=== PATIENT | male | born 1975 | race Caucasian/White ===

== ENCOUNTER 2017-05-03 18:58 | Inpatient (IN) | payer OTHER ==
[2017-05-03 19:05] VITALS: BMI 28.1
--- NOTE | 2017-05-03 19:07 | PDOC ---
Rapid Medical Evaluation Chief Complaint: Pain Time Seen by Provider: 05/03/17 19:03 Medical Evaluation: Allergies Allergy/AdvReac Type Severity Reaction Status Date / Time No Known Allergies Allergy Verified 05/03/17 19:05 Vital Signs Temp Pulse Resp BP Pulse Ox 97.7 F 114 H 19 141/83 100 05/03/17 19:02 05/03/17 19:02 05/03/17 19:02 05/03/17 19:02 05/03/17 19:02 05/03/17 19:05 I have performed a brief in-person evaluation of this patient. The patient presents with a chief complaint of: abdominal discomfort. Patient reports daily drinker, stopped drinking 3 weeks ago, now with yellowing of the eye and distended abdomen. Pertinent physical exam findings: HEENT: yellowing of sclera nad lungs clear bilaterally abdomen firm and distended I have ordered the following: labs The patient will proceed to the ED for further evaluation.
--- NOTE | 2017-05-03 20:20 | PDOC ---
History of Present Illness - General History Source: Patient Exam Limitations: No Limitations - History of Present Illness Initial Comments: 05/03/17 21:38 Patient is a 41 year old male with a significant past medical history of who presents to the ED with complaints of right sided abdominal pain that began 6 days ago. Patient reports experiencing liver swelling and pains 2.5 weeks ago that prompted him to stop drinking. He reports Experiencing slight yellow coloration of his eyes and bilateral lower extremity edema 6 days ago secondary to his right sided abdominal pain. He reports experiencing intermittent fevers that he states comes to him at night time. Patient reports drinking a glass of vodka everyday for multiple years until stopping on April 17. Denies any shaking after drinking alcohol. Denies chest pain, SOB. Denies vomiting, coughing. Denies trauma to affected area. Denies chills. Denies diarrhea, constipation, dysuria, hematuria, hematochezia. Denies any other symptoms. Allergies: Not on staff. Social history: No smoking. Former drinker (2.5 weeks). No illicit drugs. Surgical history: None PMD: Not on staff. <Shan Jackson - Last Filed: 05/04/17 00:15> <Sammy Dowell - Last Filed: 05/04/17 06:12> - General Chief Complaint: Pain Stated Complaint: PAIN, ACUTE Time Seen by Provider: 05/03/17 19:03 Past History <Shan Jackson - Last Filed: 05/04/17 00:15> - Past Medical History COPD: No Liver Disease: Yes (Cirrosis) - Surgical History Abdominal Surgery: No Appendectomy: No Cardiac Surgery: No Cholecystectomy: No Gastric Stapling: No GI Surgery: No Lung Surgery: No Neurologic Surgery: No - Suicide/Smoking/Psychosocial Hx Smoking History: Never smoked Information on smoking cessation initiated: No Hx Alcohol Use: Yes (quit 3 wks ago) Drug/Substance Use Hx: No Substance Use Type: None <Sammy Dowell - Last Filed: 05/04/17 06:12> - Past Medical History Allergies/Adverse Reactions: Allergies Allergy/AdvReac Type Severity Reaction Status Date / Time No Known Allergies Allergy Verified 05/03/17 19:05 Home Medications: Ambulatory Orders NK [No Known Home Medication] 05/03/17 Review of Systems - Review of Systems Able to Perform ROS?: Yes Comments:: 05/03/17 21:38 ROS: A complete review of 10 out of 10 review of systems is taken and is negative apart from what is previously mentioned below and in the HPI. All Other Systems: Reviewed and Negative <Shan Jackson - Last Filed: 05/04/17 00:15> *Physical Exam - Vital Signs Last Vital Signs Temp Pulse Resp BP Pulse Ox 97.7 F 114 H 19 141/83 100 05/03/17 19:02 05/03/17 19:02 05/03/17 19:02 05/03/17 19:02 05/03/17 19:02 - Physical Exam Comments: 05/03/17 21:38 Vitals: Triage Vital signs reviewed General Appearance: +Jaundice no acute distress, well nourished well developed Head: Atraumatic Eyes: +scleral icterus. Pupils equal reactive round, extraocular movement intact Chest Wall: Nontender Cardiac: +Slightly Tachycardic Regular rate and rhythym, no murmurs, no rubs, no gallops Lungs: Clear to auscultation bilateral, good air movement bilaterally Abdomen: +Hepatomegaly, +Abdominal distention. +Tender to palpation. Soft, normal bowel sounds, Extremities: Full range of motion to all extremities, no cyanosis, clubbing, or edema Skin: Warm and dry, no rashes or lesions, no rash, no petechiae Neuro: AOX3; Cranial Nerves 2-12 grossly intact, Strength intact to all extremities, Sensation intact to all extremities, gait normal Psych: Normal mood, normal affect <Shan Jackson - Last Filed: 05/04/17 00:15> - Vital Signs Last Vital Signs Temp Pulse Resp BP Pulse Ox 97.7 F 114 H 19 141/83 100 05/03/17 19:02 05/03/17 19:02 05/03/17 19:02 05/03/17 19:02 05/03/17 19:02 <Sammy Dowell - Last Filed: 05/04/17 06:12> Procedures - Bedside Ultrasound Other: paracentesis marking - Additional Procedures Progress: Patient consented for diagnostic paracentesis. Consented and timeout performed prior to procedure Under your universal sterile precautions area prepped and draped. Left abdomen was previously marked with an ultrasound 3 cm superior and medial to the anterior lateral iliac crest. Anesthetized with 2% lidocaine. 30 cc of ascitic fluid removed with no complications. <Sammy Dowell - Last Filed: 05/04/17 06:12> Heart Score/ECG Review - ECG Intrepretation Comment:: 05/04/17 00:14 EKG performed at 22:37:45 demonstrates rate of 99 bpm,normal sinus rhythm , Additional findings include: inferior infarct. no T wave inversions, no ST elevations <Shan Jackson - Last Filed: 05/04/17 00:15> ED Treatment Course - LABORATORY CBC & Chemistry Diagram: 05/03/17 21:05 05/03/17 21:05 - ADDITIONAL ORDERS Additional order review: Laboratory Results 05/03/17 05/03/17 19:20 19:20 PT with INR 12.80 H INR 1.13 PTT (Actin FS) 24.2 L Sodium 137 Potassium 3.8 Chloride 104 Carbon Dioxide 25 Anion Gap 8 BUN 5 L Creatinine 0.4 L Creat Clearance w eGFR > 60 Random Glucose 80 Calcium 8.9 Total Bilirubin 0.3 AST 22 ALT 30 Alkaline Phosphatase 70 Total Protein 6.9 Albumin 3.3 L Total Amylase 40 Lipase 92 05/03/17 05/03/17 21:05 19:20 RBC 3.47 L 3.75 L MCV 104.8 H D 96.5 H MCHC 34.0 33.9 RDW 15.5 D 13.9 MPV 7.3 L D 9.2 Neutrophils % 85.1 H D 66.1 Lymphocytes % 7.2 L D 25.2 Monocytes % 6.4 7.2 Eosinophils % 0.9 1.2 Basophils % 0.4 0.3 <Shan Jackson - Last Filed: 05/04/17 00:15> - LABORATORY CBC & Chemistry Diagram: 05/03/17 21:05 05/03/17 21:05 - ADDITIONAL ORDERS Additional order review: Laboratory Results 05/03/17 19:20 PT with INR 12.80 H INR 1.13 PTT (Actin FS) 24.2 L 05/03/17 19:20 RBC 3.75 L MCV 96.5 H MCHC 33.9 RDW 13.9 MPV 9.2 Neutrophils % 66.1 Lymphocytes % 25.2 Monocytes % 7.2 Eosinophils % 1.2 Basophils % 0.3 <Sammy Dowell - Last Filed: 05/04/17 06:12> Medical Decision Making - Medical Decision Making 05/04/17 01:03 41 years old past medical history significant for alcoholism and liver cirrhosis and likely liver failure. Presents to the emergency department with 1 week history of increasing jaundice abdominal pain and abdominal distention and distal edema In the emergency department diagnostic tap of patient's ascites was performed. Patient was started on empiric antibiotics. He was given IV fluids. Cultures were sent. He'll be admitted to the medicine service for further evaluation. <Sammy Dowell - Last Filed: 05/04/17 06:12> *DC/Admit/Observation/Transfer - Attestations Scribe Attestion: 05/03/17 21:38 Documentation prepared by Shan Jackson, acting as manager medical device for Sammy Dowell MD, /DO. <Shan Jackson - Last Filed: 05/04/17 00:15> - Discharge Dispostion Admit: Yes <Sammy Dowell - Last Filed: 05/04/17 06:12> Diagnosis at time of Disposition: SBP (spontaneous bacterial peritonitis)
[2017-05-03 21:19] LABS: BASO % 0.4 % (0-2.0); EOS % 0.9 % (0-4.5); MCH 35.6 pg (25.7-33.7); MEAN CELL VOLUME 104.8 fl (80-96); MEAN PLT VOLUME 7.3 fl (7.5-11.1); NEUT % 85.1 % (42.8-82.8); PLATELET COUNT 319 K/MM3 (134-434); RDW 15.5 % (11.9-15.9)
[2017-05-03 21:51] LABS: ALBUMIN 2.1 g/dl (3.4-5.0); ALK PHOS 216 U/L (45-117); ANION GAP 9 (8-16); BILIRUBIN,TOTAL 14.6 mg/dL (0.2-1.0); CO2 27 mmol/L (21-32); CREATININE 0.8 mg/dL (0.7-1.3); GLUCOSE,RANDOM 113 mg/dL (74-106); SGOT/AST 186 U/L (15-37); SGPT/ALT 98 U/L (12-78)
[2017-05-03] MEDS ORDERED: SODIUM CHLORIDE 0.9% 1000 ML INFUS.BAG IV PRN (22:02)
[2017-05-03] MEDS: CEFTRIAXONE 1,000 MG in DEXTROSE 5%-WATER - 50 ML IVPB ONE ×2 (22:27→23:58)
[2017-05-03] MEDS ORDERED: LIDOCAINE HCL 2% (50ML VIAL) DT ONE (23:01)
[2017-05-03] MEDS ORDERED: LIDOCAINE HCL 2% (20ML MULTI-DOSE VIAL) NR ONE ×2 (23:02→23:11)
[2017-05-03] MEDS ORDERED: LIDOCAINE HCL 2% JELLY 10 ML CARTRIDGE ONE (23:11)
[2017-05-03] MEDS ORDERED: CEFTRIAXONE 1 GM/50 ML BAG ONE (23:12)
[2017-05-03] MEDS ORDERED: CEFOTAXIME SODIUM 500 MG VIAL (RESTRICTED TO ID) IVPUSH ONE (23:29)
--- NOTE | 2017-05-03 23:38 | PN ---
Teaching Attending Note Name of Resident: Marc Hill ATTENDING PHYSICIAN STATEMENT I saw and evaluated the patient. I reviewed the resident's note and discussed the case with the resident. I agree with the resident's findings and plan as documented. SUBJECTIVE: 41 M with pmhx of etoh abuse who presents with right sided abdominal pain. States pain started around 1 week ago. States he stopped drinking around 2.5 weeks ago. Notes his eyes have been yellow and his LE have swollen. Notes he stopped his 1 glass of vodka daily. No chest pain, pressure or shortness of breath. OBJECTIVE: Physical: VS: Vital Signs Period Temp Pulse Resp BP Sys/Min Pulse Ox Last 24 Hr 97.7 F 114 19 141/83 100 GEN: NAD, resting in bed, able to speak full sentences HEENT: NCAT, PERR, Scleral icterus, throat without erythema or exudates CARD: S tach S1, S2 RESP: CTAB ABD: Distended, BS present, Hepatomegaly EXT: +1 Pitting edema bilateral and equal CBCD WBC 20.0 K/mm3 (4.0-10.0) H D 05/03/17 21:05 RBC 3.47 M/mm3 (4.00-5.60) L 05/03/17 21:05 Hgb 12.4 GM/dL (11.7-16.9) 05/03/17 21:05 Hct 36.4 % (35.4-49) 05/03/17 21:05 MCV 104.8 fl (80-96) H D 05/03/17 21:05 MCHC 34.0 g/dl (32.0-35.9) 05/03/17 21:05 RDW 15.5 % (11.9-15.9) D 05/03/17 21:05 Plt Count 319 K/MM3 (134-434) D 05/03/17 21:05 MPV 7.3 fl (7.5-11.1) L D 05/03/17 21:05 CMP Sodium 135 mmol/L (136-145) L 05/03/17 21:05 Potassium 3.2 mmol/L (3.5-5.1) L 05/03/17 21:05 Chloride 99 mmol/L (98-107) 05/03/17 21:05 Carbon Dioxide 27 mmol/L (21-32) 05/03/17 21:05 Anion Gap 9 (8-16) 05/03/17 21:05 BUN 12 mg/dL (7-18) D 05/03/17 21:05 Creatinine 0.8 mg/dL (0.7-1.3) D 05/03/17 21:05 Creat Clearance w eGFR > 60 (>60) 05/03/17 21:05 Random Glucose 113 mg/dL (74-106) H D 05/03/17 21:05 Calcium 8.0 mg/dL (8.5-10.1) L 05/03/17 21:05 Total Bilirubin 14.6 mg/dL (0.2-1.0) H D 05/03/17 21:05 AST 186 U/L (15-37) H D 05/03/17 21:05 ALT 98 U/L (12-78) H D 05/03/17 21:05 Alkaline Phosphatase 216 U/L (45-117) H D 05/03/17 21:05 Total Protein 6.0 g/dl (6.4-8.2) L 05/03/17 21:05 Albumin 2.1 g/dl (3.4-5.0) L D 05/03/17 21:05 CXR- No Acute Process ABD US: Hepatomegaly, caorsened lived sugg. liver dz. contracted gallbladder no choleylithiasis or choleycystitis, or billiary ductal dilitation ASSESSMENT AND PLAN: 41 M with pmhx of etoh abuse who presents with right sided abdominal pain, found to have possible spontaneus bacterial peritonitis and etoh cirrhosis 1.) Sepsis due to SBP - Reynolds Cx - Repeat LA - Cefotaxime 2g Q8 - ID consult - Fu P.Fluid studies- S/P Diagnostic Paracentsis in ED - FU Fluid Cs -Albumin (due to RF prevention, T Bili 14, even with nml BUN/CR) - GI consult - IVF gentle 2.) Transaminitis/Inc. Bili - Most likely due to ETOH cirrhosis - Hep. Panel - D. Bili - Trend 3.) Dvt Ppx - Heparin 5000 q 8
--- NOTE | 2017-05-03 23:43 | HP ---
CHIEF COMPLAINT: Abdominal distension PCP: hCon Zhang, HISTORY OF PRESENT ILLNESS: 41 y/o man w/ pmh of chronic alcohol abuse (1-1.5 pints of liquor/day) who presents with new right-side abdominal pain and subjective fevers in the setting of 2.5 weeks of worsening abdominal distension, RUQ fullness and jaundice. Pt endorses experiencing dull RUQ pain and fullness, starting Apr 17 , after drinking a pint of liquor. Pt states that over the following few days he developed abdominal distension, constipation and experienced decreased appetite. Pt stopped drinking alcohol, however experienced no signficant improvement in symptoms. He states he has experienced a similar episode ~ 3months that lasted 2-3 days and completely resolved after stopping his alcohol intact. Pt endorses persistent abdominal distension, worsening jaundice and six days ago began noting BL LE edema, persistent R-sided abdominal pain and subjective fevers at night. He denies any LEON/dizziness, CP, palpitations, persistent N/V, dysuria, diarrhea, changes in stool color, melena, hematochezia or melena. He does endorse 3-4 days of dry cough, and intermittent constipation over the past few weeks, as well as decreased PO intake. He endorses mild exacerbation of his abdominal pain on deep inspiration, but denies worsening with food, positioning and denies any radiation or relieving factors. Pt has never been hospitalized for an infection or GI process before. He denies any hx of GI disorders. He denies hx of Hepatitis B/C dx or IVDU. He does not following with a consumer loan processor. ER course was notable for: (1)WBC 20, HR 114 (2)Lactate 2.8, T Bili 14.6, Lipase 633 (3) Abdominal U/S coarse liver w/ perihepatic fluid Recent Travel: None PAST MEDICAL HISTORY: Chronic alcohol abuse (1-1.5 pints of liquor per day) PAST SURGICAL HISTORY: None Social History: Smoking: Stopped 8 months ago, 4 cigs/day for 20 years Alcohol: 1-1.5 pints of liquor per day for last 10-15 years Drugs: None Works at [employer] Family History: Mother, father with DM2 Allergies No Known Allergies Allergy (Verified 05/03/17 19:05) HOME MEDICATIONS: Home Medications Medication Instructions Recorded NK [No Known Home Medication] 12/18/17 REVIEW OF SYSTEMS CONSTITUTIONAL: fever, chills Absent: diaphoresis, generalized weakness, malaise, weight change HEENT: Absent: rhinorrhea, nasal congestion, throat pain, throat swelling, difficulty swallowing, mouth swelling, ear pain, eye pain, visual changes CARDIOVASCULAR: peripheral edema Absent: chest pain, syncope, palpitations, irregular heart rate, lightheadedness , RESPIRATORY: Absent: dry cough, shortness of breath, dyspnea with exertion, orthopnea, wheezing, stridor, hemoptysis GASTROINTESTINAL: abdominal pain, abdominal distension, constipation, Absent: nausea, vomiting, diarrhea, melena, hematochezia GENITOURINARY: Absent: dysuria, frequency, urgency, hesitancy, hematuria, flank pain, genital pain MUSCULOSKELETAL: Absent: myalgia, arthralgia, joint swelling, back pain, neck pain SKIN: Absent: rash, itching, pallor HEMATOLOGIC/IMMUNOLOGIC: Absent: easy bleeding, easy bruising, lymphadenopathy, frequent infections ENDOCRINE: Absent: unexplained weight gain, unexplained weight loss, heat intolerance, cold intolerance NEUROLOGIC: Absent: headache, focal weakness or paresthesias, dizziness, unsteady gait, seizure, mental status changes, bladder or bowel incontinence PSYCHIATRIC: Absent: anxiety, depression, suicidal or homicidal ideation, hallucinations. PHYSICAL EXAMINATION Vital Signs - 24 hr 05/03/17 19:02 Temperature 97.7 F Pulse Rate 114 H Respiratory 19 Rate Blood Pressure 141/83 O2 Sat by Pulse 100 Oximetry (%) GENERAL: Awake, alert, and fully oriented, laying in NAD HEAD: Jaundiced. Normal with no signs of trauma. EYES: + Scleral icterus. Pupils equal, round and reactive to light, extraocular movements intact, conjunctiva clear. No lid lag. EARS, NOSE, THROAT: Sublingual, palatal jaundice. Ears normal, nares patent, oropharynx clear without exudates. Moist mucous membranes. NECK: Normal range of motion, supple without lymphadenopathy, JVD, or masses. LUNGS: Breath sounds decreased at bases. No wheezes, and no crackles. No accessory muscle use. HEART: Tachycardia. Regular, normal S1 and S2 without murmur, rub or gallop. ABDOMEN: Distended abdomen with mild tenderness to deep palpation in RUQ. Normoactive bowel sounds, no guarding, no rebound, no masses. Hepatosplenomegaly noted. + shifting dullness. Small LLQ bandage from diag paracentesis. MUSCULOSKELETAL: Normal range of motion at all joints. No bony deformities or tenderness. No CVA tenderness. UPPER EXTREMITIES: 2+ pulses, warm, well-perfused. No cyanosis. No clubbing. No peripheral edema. LOWER EXTREMITIES: 2+ DP, PT pulses, warm, well-perfused. No calf tenderness. 1 + pitting edema to knees BL. NEUROLOGICAL: Cranial nerves II-XII intact. Normal speech. Gait not evaluated. PSYCHIATRIC: Cooperative. Good eye contact. Appropriate mood and affect. SKIN: Warm, dry, normal turgor. Normal cap refill. Laboratory Results - last 24 hr CBC, BMP 05/03/17 21:05 05/03/17 21:05 05/03/17 05/03/17 05/03/17 19:20 19:20 19:20 WBC 9.3 RBC 3.75 L Hgb 12.3 Hct 36.2 MCV 96.5 H MCH 32.7 MCHC 33.9 RDW 13.9 Plt Count 239 MPV 9.2 Neutrophils % 66.1 Lymphocytes % 25.2 Monocytes % 7.2 Eosinophils % 1.2 Basophils % 0.3 PT with INR 12.80 H INR 1.13 PTT (Actin FS) 24.2 L Sodium 137 Potassium 3.8 Chloride 104 Carbon Dioxide 25 Anion Gap 8 BUN 5 L Creatinine 0.4 L Creat Clearance w eGFR > 60 Random Glucose 80 Lactic Acid Calcium 8.9 Total Bilirubin 0.3 AST 22 ALT 30 Alkaline Phosphatase 70 Ammonia Total Protein 6.9 Albumin 3.3 L Total Amylase 40 Lipase 92 Alcohol, Quantitative Blood Type Antibody Screen 05/03/17 05/03/17 05/03/17 20:54 21:05 21:05 WBC RBC Hgb Hct MCV MCH MCHC RDW Plt Count MPV Neutrophils % Lymphocytes % Monocytes % Eosinophils % Basophils % PT with INR INR PTT (Actin FS) 37.3 H D Sodium 135 L Potassium 3.2 L Chloride 99 Carbon Dioxide 27 Anion Gap 9 BUN 12 D Creatinine 0.8 D Creat Clearance w eGFR > 60 Random Glucose 113 H D Lactic Acid Calcium 8.0 L Total Bilirubin 14.6 H D AST 186 H D ALT 98 H D Alkaline Phosphatase 216 H D Ammonia Total Protein 6.0 L Albumin 2.1 L D Total Amylase Lipase 633 H Alcohol, Quantitative < 5.0 Blood Type Antibody Screen 05/03/17 05/03/17 05/03/17 21:05 21:05 21:10 WBC 20.0 H D RBC 3.47 L Hgb 12.4 Hct 36.4 MCV 104.8 H D MCH 35.6 H MCHC 34.0 RDW 15.5 D Plt Count 319 D MPV 7.3 L D Neutrophils % 85.1 H D Lymphocytes % 7.2 L D Monocytes % 6.4 Eosinophils % 0.9 Basophils % 0.4 PT with INR INR PTT (Actin FS) Sodium Potassium Chloride Carbon Dioxide Anion Gap BUN Creatinine Creat Clearance w eGFR Random Glucose Lactic Acid 2.8 H* Calcium Total Bilirubin AST ALT Alkaline Phosphatase Ammonia Total Protein Albumin Total Amylase Lipase Alcohol, Quantitative Blood Type O POSITIVE Antibody Screen Negative 05/03/17 21:10 WBC RBC Hgb Hct MCV MCH MCHC RDW Plt Count MPV Neutrophils % Lymphocytes % Monocytes % Eosinophils % Basophils % PT with INR INR PTT (Actin FS) Sodium Potassium Chloride Carbon Dioxide Anion Gap BUN Creatinine Creat Clearance w eGFR Random Glucose Lactic Acid Calcium Total Bilirubin AST ALT Alkaline Phosphatase Ammonia 22.6 Total Protein Albumin Total Amylase Lipase Alcohol, Quantitative Blood Type Antibody Screen Abdominal US 05/03 - IMPRESSION: 1. Hepatomegaly with echogenic hepatic parenchyma representing steatosis and/or fibrosis. Coarsened liver contour suggests chronic liver disease. Please correlate clinical for cirrhosis. 2. Contracted gallbladder with no definite cholelithiasis, acute cholecystitis or biliary ductal dilatation. Mild thickening of the gallbladder wall is presumably secondary to underdistention. 3. Suboptimal evaluation of the pancreas. 4. Moderate splenomegaly, which is nonspecific, but could be due to portal hypertension. 5. Small volume of perihepatic fluid fluid and trace perisplenic fluid. CXR 05/03 - Shallow inspiration with low lung volumes limiting evaluation of the lung bases. No definite airspace consolidation or sizable pleural effusion. If clinically warranted, a 2 view chest x-ray with improved inspiration may be obtained. ASSESSMENT/PLAN: 41 y/o man w/ pmh of chronic alcohol abuse who presents with right-sided abdominal pain and subjective fevers in the setting of 2-3 weeks of worsening abdominal distension, RUQ fullness and jaundice. #Sepsis secondary to SBP - WBC 20, tachy to 114. - IVFs - F/u all cultures (Blood, urine, p fluid cx's) - F/u diagnostic para peritoneal studies - Trend Lactate - Cefotaxime 2g q8h - F/u EKG - Albumin infusion - Trend fever, WBC count - UA negative - GI consulted recs appreciated - ID consulted, recs appreciated #Transaminitis/elevated T-bili - Ab U/s with enlarged, coarse liver w/ parenchymal dz. Likely hx of alcoholic cirrhosis. AST, Alk Phos elevated - Trend LFTs - f/u hepatitis panel - Direct bilirubin PPX Subq Heparin, TEDs FEN: F: NS 75cc/hr E: Daily BMPs, HypoK (3.2) N: NPO Plan discussed with attending, Dr. Fabian Hill Visit type - Emergency Visit Emergency Visit: Yes ED Registration Date: 05/03/17 Care time: The patient presented to the Emergency Department on the above date and was hospitalized for further evaluation of their emergent condition. - New Patient This patient is new to me today: Yes Date on this admission: 05/04/17 - Critical Care Critical Care patient: No
[2017-05-03 23:49] LABS: URINE APPEARANCE SLCLOUDY; URINE BLOOD NEGATIVE (NEGATIVE); URINE COLOR AMBER; URINE GLUCOSE (UA) NEGATIVE (NEGATIVE); URINE KETONE NEGATIVE (NEGATIVE); URINE LEUK ESTERASE NEGATIVE (NEGATIVE); URINE NITRITE NEGATIVE (NEGATIVE); URINE PROTEIN NEGATIVE (NEGATIVE); URINE UROBILINOGEN 4.0 E.U/dl mg/dL (0.2-1.0)
[2017-05-04] MEDS ORDERED: CEFTAZIDIME PENTAHYDRATE 2 GM in DEXTROSE 5%-WATER - 100 ML IVPB ONE ×2 (00:15→08:00)
[2017-05-04] MEDS: ALBUMIN HUMAN 25% 12.5 GM/50 ML VIAL IVPB SCH ×4 (00:38→02:40)
[2017-05-04 01:19] LABS: BODY FLUID RBC 1040 /mm3
[2017-05-04 01:26] LABS: GLUCOSE,BODY FLUID 120 mg/dl
[2017-05-04 01:43] LABS: BILIRUBIN,DIRECT 11.4 mg/dL (0.0-0.2)
[2017-05-04] MEDS ORDERED: SODIUM CHLORIDE 1,000 ML IV SCH (02:00)
[2017-05-04] MEDS ORDERED: POTASSIUM CHLORIDE 30 MEQ in SODIUM CHLORIDE 300 ML IVPB ONE (02:15)
[2017-05-04] MEDS ORDERED: KCL 10 MEQ IVPB 10 MEQ/100 ML INFUS.BAG IVPB SCH (02:15)
[2017-05-04 03:12] LABS: BODY FLUID LYMPHS 8 %; BODY FLUID NEUTROPHILS 22 %; PLEURAL FLUID MACROPHAGES 57 %
[2017-05-04] MEDS: HEPARIN NA (PORCINE) 5,000 UNITS/ML 1ML VIAL SQ SCH ×4 (06:56→21:52)
--- NOTE | 2017-05-04 07:56 | CON.GI ---
Consult Consult Specialty:: GI - History of Present Illness History of Present Illness: A 41 yom with acute onset distended abdomen. Chronic alcohol abuse. Last drink 2 weeks ago. Stopped drinking daily vodka when developed nighttime chills, RUQ pain and jaundice. Denies dysphagia, odynophagia, fever, nausea, vomiting, diarrhea, melena, hematochezia, hematemesis. Had a similar event 3 months go with complete resolution after avoiding alcohol. No history of EGD, or liver evaluation. US on this admission showed possible chronic liver disease and portal hypertension. - Alcohol/Substance Use Hx Alcohol Use: Yes (quit 3 wks ago) - Smoking History Smoking history: Never smoked Home Medications - Allergies Allergies/Adverse Reactions: Allergies Allergy/AdvReac Type Severity Reaction Status Date / Time No Known Allergies Allergy Verified 05/03/17 19:05 - Home Medications Home Medications: Ambulatory Orders NK [No Known Home Medication] 05/03/17 Family Disease History - Family Disease History Family History: Unremarkable Review of Systems Findings/Remarks: Please refer to H&P Physical Exam-GI Vital Signs: Vital Signs Temperature 98.4 F 05/04/17 04:55 Pulse Rate 100 H 05/04/17 04:55 Respiratory Rate 20 05/04/17 04:55 Blood Pressure 134/86 05/04/17 04:55 O2 Sat by Pulse Oximetry (%) 100 05/03/17 19:02 Constitutional: Yes: No Distress, Calm Eyes: Yes: Sclera Icterus HENT: Yes: Atraumatic Neck: Yes: Supple Cardiovascular: Yes: Regular Rate and Rhythm Respiratory: Yes: Regular Gastrointestinal Inspection: Yes: Ascites, Distention ...Palpate: No: Firm/Rigid, Guarding, Mass, Tenderness, Epigastium Neurological: Yes: Alert, Oriented. No: Ataxia, Confusion, Lethargy, Tremors Labs: CBC, BMP 05/03/17 21:05 05/03/17 21:05 INR, PTT INR 1.13 (0.82-1.09) 05/03/17 19:20 Laboratory Results - last 24 hr 05/03/17 05/03/17 05/03/17 19:20 19:20 19:20 WBC RBC Hgb Hct MCV MCH MCHC RDW Plt Count MPV Neutrophils % Lymphocytes % Monocytes % Eosinophils % Basophils % PT with INR INR PTT (Actin FS) Sodium Potassium Chloride Carbon Dioxide Anion Gap BUN Creatinine Creat Clearance w eGFR Random Glucose Lactic Acid Calcium Total Bilirubin Direct Bilirubin AST ALT Alkaline Phosphatase Ammonia Total Protein Albumin Total Amylase Lipase Urine Color Urine Appearance Urine pH Ur Specific [place] Urine Protein Urine Glucose (UA) Urine Ketones Urine Blood Urine Nitrite Urine Bilirubin Urine Urobilinogen Ur Leukocyte Esterase Fluid Source Fluid WBC Fluid RBC Fluid Neutrophils Fluid Lymphocytes Fluid Glucose Fluid Total Protein LDH Serum/Fluid Ratio Fluid Amylase Peritoneal Tot Protein Peritoneal Albumin Peritoneal LDH Peritoneal Glucose Peritoneal Amylase Pleural Macrophages Pleural Mesothelial Alcohol, Quantitative Blood Type Antibody Screen 05/03/17 05/03/17 05/03/17 20:54 20:54 21:05 WBC RBC Hgb Hct MCV MCH MCHC RDW Plt Count MPV Neutrophils % Lymphocytes % Monocytes % Eosinophils % Basophils % PT with INR INR PTT (Actin FS) 37.3 H Sodium 135 L Potassium 3.2 L Chloride 99 Carbon Dioxide 27 Anion Gap 9 BUN 12 Creatinine 0.8 Creat Clearance w eGFR > 60 Random Glucose 113 H Lactic Acid Calcium 8.0 L Total Bilirubin 14.6 H Direct Bilirubin AST 186 H ALT 98 H Alkaline Phosphatase 216 H Ammonia Total Protein 6.0 L Albumin 2.1 L Total Amylase Lipase 633 H Urine Color Radha Urine Appearance Slcloudy Urine pH 6.0 Ur Specific [place] 1.017 Urine Protein Negative Urine Glucose (UA) Negative Urine Ketones Negative Urine Blood Negative Urine Nitrite Negative Urine Bilirubin 4.0 Urine Urobilinogen 4.0 e.u/dl Ur Leukocyte Esterase Negative Fluid Source Fluid WBC Fluid RBC Fluid Neutrophils Fluid Lymphocytes Fluid Glucose Fluid Total Protein LDH Serum/Fluid Ratio Fluid Amylase Peritoneal Tot Protein Peritoneal Albumin Peritoneal LDH Peritoneal Glucose Peritoneal Amylase Pleural Macrophages Pleural Mesothelial Alcohol, Quantitative Blood Type Antibody Screen 05/03/17 05/03/17 05/03/17 21:05 21:05 21:05 WBC 20.0 H RBC 3.47 L Hgb 12.4 Hct 36.4 MCV 104.8 H MCH 35.6 H MCHC 34.0 RDW 15.5 Plt Count 319 MPV 7.3 L Neutrophils % 85.1 H Lymphocytes % 7.2 L Monocytes % 6.4 Eosinophils % 0.9 Basophils % 0.4 PT with INR INR PTT (Actin FS) Sodium Potassium Chloride Carbon Dioxide Anion Gap BUN Creatinine Creat Clearance w eGFR Random Glucose Lactic Acid Calcium Total Bilirubin Direct Bilirubin AST ALT Alkaline Phosphatase Ammonia Total Protein Albumin Total Amylase Lipase Urine Color Urine Appearance Urine pH Ur Specific [place] Urine Protein Urine Glucose (UA) Urine Ketones Urine Blood Urine Nitrite Urine Bilirubin Urine Urobilinogen Ur Leukocyte Esterase Fluid Source Fluid WBC Fluid RBC Fluid Neutrophils Fluid Lymphocytes Fluid Glucose Fluid Total Protein LDH Serum/Fluid Ratio Fluid Amylase Peritoneal Tot Protein Peritoneal Albumin Peritoneal LDH Peritoneal Glucose Peritoneal Amylase Pleural Macrophages Pleural Mesothelial Alcohol, Quantitative < 5.0 Blood Type O POSITIVE Antibody Screen Negative 05/03/17 05/03/17 05/04/17 21:10 23:45 00:30 WBC RBC Hgb Hct MCV MCH MCHC RDW Plt Count MPV Neutrophils % Lymphocytes % Monocytes % Eosinophils % Basophils % PT with INR INR PTT (Actin FS) Sodium Potassium Chloride Carbon Dioxide Anion Gap BUN Creatinine Creat Clearance w eGFR Random Glucose Lactic Acid Calcium Total Bilirubin Direct Bilirubin 11.4 H AST ALT Alkaline Phosphatase Ammonia 22.6 Total Protein Albumin Total Amylase Lipase Urine Color Urine Appearance Urine pH Ur Specific [place] Urine Protein Urine Glucose (UA) Urine Ketones Urine Blood Urine Nitrite Urine Bilirubin Urine Urobilinogen Ur Leukocyte Esterase Fluid Source Peritoneal Fluid WBC 350 Fluid RBC 1040 Fluid Neutrophils 22 Fluid Lymphocytes 8 Fluid Glucose 120 Fluid Total Protein 1.1 LDH Serum/Fluid Ratio 71.38 Fluid Amylase 35.044 Peritoneal Tot Protein Cancelled Peritoneal Albumin Cancelled Peritoneal LDH Cancelled Peritoneal Glucose Cancelled Peritoneal Amylase Cancelled Pleural Macrophages 57 Pleural Mesothelial 13 Alcohol, Quantitative Blood Type Antibody Screen 05/04/17 05/04/17 07:00 07:07 WBC RBC Hgb Hct MCV MCH MCHC RDW Plt Count MPV Neutrophils % Lymphocytes % Monocytes % Eosinophils % Basophils % PT with INR INR PTT (Actin FS) Sodium Potassium Chloride Carbon Dioxide Anion Gap BUN Creatinine Creat Clearance w eGFR Random Glucose Lactic Acid 1.2 2.8 H* Calcium Total Bilirubin Direct Bilirubin AST ALT Alkaline Phosphatase Ammonia Total Protein Albumin Total Amylase Lipase Urine Color Urine Appearance Urine pH Ur Specific [place] Urine Protein Urine Glucose (UA) Urine Ketones Urine Blood Urine Nitrite Urine Bilirubin Urine Urobilinogen Ur Leukocyte Esterase Fluid Source Fluid WBC Fluid RBC Fluid Neutrophils Fluid Lymphocytes Fluid Glucose Fluid Total Protein LDH Serum/Fluid Ratio Fluid Amylase Peritoneal Tot Protein Peritoneal Albumin Peritoneal LDH Peritoneal Glucose Peritoneal Amylase Pleural Macrophages Pleural Mesothelial Alcohol, Quantitative Blood Type Antibody Screen Laboratory Tests 05/03/17 05/03/17 05/03/17 19:20 19:20 19:20 WBC RBC Hgb Hct MCV MCH MCHC RDW Plt Count MPV Neutrophils % Lymphocytes % Monocytes % Eosinophils % Basophils % PT with INR INR PTT (Actin FS) Sodium Potassium Chloride Carbon Dioxide Anion Gap BUN Creatinine Creat Clearance w eGFR Random Glucose Lactic Acid Calcium Total Bilirubin Direct Bilirubin AST ALT Alkaline Phosphatase Ammonia Total Protein Albumin Total Amylase Lipase Urine Color Urine Appearance Urine pH Ur Specific [place] Urine Protein Urine Glucose (UA) Urine Ketones Urine Blood Urine Nitrite Urine Bilirubin Urine Urobilinogen Ur Leukocyte Esterase Fluid Source Fluid WBC Fluid RBC Fluid Neutrophils Fluid Lymphocytes Fluid Glucose Fluid Total Protein LDH Serum/Fluid Ratio Fluid Amylase Peritoneal Tot Protein Peritoneal Albumin Peritoneal LDH Peritoneal Glucose Peritoneal Amylase Pleural Macrophages Pleural Mesothelial Alcohol, Quantitative Blood Type Antibody Screen 05/03/17 05/03/17 05/03/17 20:54 20:54 21:05 WBC RBC Hgb Hct MCV MCH MCHC RDW Plt Count MPV Neutrophils % Lymphocytes % Monocytes % Eosinophils % Basophils % PT with INR INR PTT (Actin FS) 37.3 H Sodium 135 L Potassium 3.2 L Chloride 99 Carbon Dioxide 27 Anion Gap 9 BUN 12 Creatinine 0.8 Creat Clearance w eGFR > 60 Random Glucose 113 H Lactic Acid Calcium 8.0 L Total Bilirubin 14.6 H Direct Bilirubin AST 186 H ALT 98 H Alkaline Phosphatase 216 H Ammonia Total Protein 6.0 L Albumin 2.1 L Total Amylase Lipase 633 H Urine Color Radha Urine Appearance Slcloudy Urine pH 6.0 Ur Specific [place] 1.017 Urine Protein Negative Urine Glucose (UA) Negative Urine Ketones Negative Urine Blood Negative Urine Nitrite Negative Urine Bilirubin 4.0 Urine Urobilinogen 4.0 e.u/dl Ur Leukocyte Esterase Negative Fluid Source Fluid WBC Fluid RBC Fluid Neutrophils Fluid Lymphocytes Fluid Glucose Fluid Total Protein LDH Serum/Fluid Ratio Fluid Amylase Peritoneal Tot Protein Peritoneal Albumin Peritoneal LDH Peritoneal Glucose Peritoneal Amylase Pleural Macrophages Pleural Mesothelial Alcohol, Quantitative Blood Type Antibody Screen 05/03/17 05/03/17 05/03/17 21:05 21:05 21:05 WBC 20.0 H RBC 3.47 L Hgb 12.4 Hct 36.4 MCV 104.8 H MCH 35.6 H MCHC 34.0 RDW 15.5 Plt Count 319 MPV 7.3 L Neutrophils % 85.1 H Lymphocytes % 7.2 L Monocytes % 6.4 Eosinophils % 0.9 Basophils % 0.4 PT with INR INR PTT (Actin FS) Sodium Potassium Chloride Carbon Dioxide Anion Gap BUN Creatinine Creat Clearance w eGFR Random Glucose Lactic Acid Calcium Total Bilirubin Direct Bilirubin AST ALT Alkaline Phosphatase Ammonia Total Protein Albumin Total Amylase Lipase Urine Color Urine Appearance Urine pH Ur Specific [place] Urine Protein Urine Glucose (UA) Urine Ketones Urine Blood Urine Nitrite Urine Bilirubin Urine Urobilinogen Ur Leukocyte Esterase Fluid Source Fluid WBC Fluid RBC Fluid Neutrophils Fluid Lymphocytes Fluid Glucose Fluid Total Protein LDH Serum/Fluid Ratio Fluid Amylase Peritoneal Tot Protein Peritoneal Albumin Peritoneal LDH Peritoneal Glucose Peritoneal Amylase Pleural Macrophages Pleural Mesothelial Alcohol, Quantitative < 5.0 Blood Type O POSITIVE Antibody Screen Negative 05/03/17 05/03/17 05/04/17 21:10 23:45 00:30 WBC RBC Hgb Hct MCV MCH MCHC RDW Plt Count MPV Neutrophils % Lymphocytes % Monocytes % Eosinophils % Basophils % PT with INR INR PTT (Actin FS) Sodium Potassium Chloride Carbon Dioxide Anion Gap BUN Creatinine Creat Clearance w eGFR Random Glucose Lactic Acid Calcium Total Bilirubin Direct Bilirubin 11.4 H AST ALT Alkaline Phosphatase Ammonia 22.6 Total Protein Albumin Total Amylase Lipase Urine Color Urine Appearance Urine pH Ur Specific [place] Urine Protein Urine Glucose (UA) Urine Ketones Urine Blood Urine Nitrite Urine Bilirubin Urine Urobilinogen Ur Leukocyte Esterase Fluid Source Peritoneal Fluid WBC 350 Fluid RBC 1040 Fluid Neutrophils 22 Fluid Lymphocytes 8 Fluid Glucose 120 Fluid Total Protein 1.1 LDH Serum/Fluid Ratio 71.38 Fluid Amylase 35.044 Peritoneal Tot Protein Cancelled Peritoneal Albumin Cancelled Peritoneal LDH Cancelled Peritoneal Glucose Cancelled Peritoneal Amylase Cancelled Pleural Macrophages 57 Pleural Mesothelial 13 Alcohol, Quantitative Blood Type Antibody Screen 05/04/17 05/04/17 07:00 07:07 WBC RBC Hgb Hct MCV MCH MCHC RDW Plt Count MPV Neutrophils % Lymphocytes % Monocytes % Eosinophils % Basophils % PT with INR INR PTT (Actin FS) Sodium Potassium Chloride Carbon Dioxide Anion Gap BUN Creatinine Creat Clearance w eGFR Random Glucose Lactic Acid 1.2 2.8 H* Calcium Total Bilirubin Direct Bilirubin AST ALT Alkaline Phosphatase Ammonia Total Protein Albumin Total Amylase Lipase Urine Color Urine Appearance Urine pH Ur Specific [place] Urine Protein Urine Glucose (UA) Urine Ketones Urine Blood Urine Nitrite Urine Bilirubin Urine Urobilinogen Ur Leukocyte Esterase Fluid Source Fluid WBC Fluid RBC Fluid Neutrophils Fluid Lymphocytes Fluid Glucose Fluid Total Protein LDH Serum/Fluid Ratio Fluid Amylase Peritoneal Tot Protein Peritoneal Albumin Peritoneal LDH Peritoneal Glucose Peritoneal Amylase Pleural Macrophages Pleural Mesothelial Alcohol, Quantitative Blood Type Antibody Screen Imaging - Results Ultrasound: Report Reviewed Problem List - Problems (1) Distended abdomen Code(s): R14.0 - ABDOMINAL DISTENSION (GASEOUS) (2) Alcohol abuse Code(s): F10.10 - ALCOHOL ABUSE, UNCOMPLICATED Assessment/Plan A 41 yom, alcoholic with possible underlying advanced liver disease who developed acute onset distended abdomen, chills, RUQ pain, jaundice and has leukocytosis on admission. Paracentesis reveals 1035 RBC, 350 WBC, 22 neutophils. No albumin was sent Doubt SBP. Suspect alcoholic hepatitis. MRI. r/o vascular thomosis, tumor, etc PT/INR viral serology, autoimmune profile, Iron will follow
[2017-05-04] MEDS ORDERED: CEFOTAXIME SODIUM IVPB ONE (08:00)
[2017-05-04] MEDS ORDERED: DEXTROSE 5% IVPB ONE (08:00)
[2017-05-04] MEDS ORDERED: WATER IVPB ONE (08:00)
[2017-05-04 09:22] LABS: URINE LEUK ESTERASE Negative (NEGATIVE)
[2017-05-04] MEDS ORDERED: PNEUMOC 13-VAL CONJ-DIP CRM/PF 0.5 ML DISP.SYRIN IM ONE (10:00)
[2017-05-04] MEDS ORDERED: FLU VACCINE QUAD 60 MCG/0.5 ML (MDV 17-18) IM ONE (10:00)
[2017-05-04] MEDS ORDERED: CEFOTAXIME SODIUM 2,000 MG in DEXTROSE 5%-WATER - 50 ML IVPB SCH ×2 (10:00→11:00)
--- NOTE | 2017-05-04 10:28 | PN ---
Progress Note (short form) - Note Progress Note: ID Consult dictated ? SBP 350WBC 22% N ? Alcoholic hepatitis Leukocytosis Lactic acidosis Await c/s Empiric ceftriaxone ( Cefotaxime not available) GI evaluation Rehab referral HIV test
[2017-05-04] MEDS: CEFTRIAXONE 2 GM in DEXTROSE 5%-WATER - 100 ML IVPB SCH (11:49)
--- NOTE | 2017-05-04 12:08 | CONS ---
DATE OF CONSULTATION: DATE OF DICTATION: 05/04/2017 HISTORY OF PRESENT ILLNESS: The patient is a 41-year-old male with a history of chronic alcohol abuse evaluated for possible SBP. The patient was admitted to the hospital on with a 1-week history of right-sided abdominal pain, increasing abdominal distension, jaundice, and subjective fever. He was found to be tachycardic, jaundiced, with an elevated white blood cell count. Sonogram revealed an enlarged liver and spleen, contracted gallbladder, without evidence of acute gallbladder pathology. A diagnostic paracentesis was performed. He was empirically treated with ceftazidime. Patient reports a history of chronic alcohol abuse stopping approximately 2-1/2 weeks ago. He reports subjective fever at home, denies chills, denies risk factors for HIV, however, his status is not known. PAST MEDICAL HISTORY: Positive for chronic alcohol abuse. ALLERGIES: No known allergies. LABORATORY DATA: White count 20,000, 85 neutrophils, 7 lymphocytes, hematocrit 36.4, platelet count 319. BUN 12, creatinine 0.8, total bilirubin 14.6, alkaline phosphatase 216, AST 186, lipase 633, amylase 40. Urine leukocyte esterase negative. Lactic acid 2.8. Peritoneal fluid 250 white cells, 22% neutrophils, protein 1.1, LDH 71, glucose 120. Gram stain and cultures pending. PHYSICAL EXAMINATION: General: He is awake and alert. He is supine in bed. He is in no acute distress. He is not acutely toxic-appearing. Vital signs: Temperature 98.4, blood pressure 134/86, pulse 100 and regular, respirations 20 per minute. HEENT: Sclerae icteric. Patient is jaundiced. Positive fetor hepaticus. Neck: supple. Heart: Heart sounds S1, S2. Lungs: Diminished breath sounds, bases. Abdomen: Distended with ascites. No tenderness elicited. Extremities: Positive for edema. IMPRESSION: 1. Possible spontaneous bacterial peritonitis. 2. Possible alcoholic hepatitis. 3. Marked leukocytosis. 4. Lactic acidosis. Await ascetic fluid and blood culture results, empiric ceftriaxone (cefotaxime not available in pharmacy), GI evaluation, rehabilitation referral for chronic alcohol abuse, HIV testing (patient gives verbal consent). Thank you for the kind referral. LARRY MADRIGAL M.D. [id number]
[2017-05-04 12:33] LABS: ALBUMIN 2.2 g/dl (3.4-5.0); ALK PHOS 177 U/L (45-117); ANION GAP 11 (8-16); BILIRUBIN,TOTAL 14.3 mg/dL (0.2-1.0); CALCIUM 8.3 mg/dL (8.5-10.1); CO2 22 mmol/L (21-32); CREATININE 0.6 mg/dL (0.7-1.3); GLUCOSE,RANDOM 90 mg/dL (74-106); SGOT/AST 176 U/L (15-37); SGPT/ALT 82 U/L (12-78); TOT PROT 5.7 g/dl (6.4-8.2)
[2017-05-04 13:19] LABS: BASO % 0.8 % (0-2.0); EOS % 0.8 % (0-4.5); MCH 34.8 pg (25.7-33.7); MCHC 32.8 g/dl (32.0-35.9); MEAN CELL VOLUME 105.9 fl (80-96); MEAN PLT VOLUME 7.4 fl (7.5-11.1); NEUT % 85.4 % (42.8-82.8); PLATELET COUNT 311 K/MM3 (134-434); RDW 15.8 % (11.9-15.9); WHITE BLOOD COUNT 19.7 K/mm3 (4.0-10.0)
[2017-05-04 13:25] LABS: INR 2.26 (0.82-1.09); PROTHROMBIN TIME (PATIENT) 25.5 SEC (9.98-11.88)
--- NOTE | 2017-05-04 14:19 | PN ---
Teaching Attending Note Name of Resident: Eliana Evans ATTENDING PHYSICIAN STATEMENT I saw and evaluated the patient. I reviewed the resident's note and discussed the case with the resident. I agree with the resident's findings and plan as documented. SUBJECTIVE: No fever or chills, has Abd pain branden in RUQ. no N/V ,no h/o hematomesis OBJECTIVE: NAD, AAOx3. Jaundice, MMM, mild JVD on L . CV: RRR, 2/6 SM at LLSB Lungs: CTAB Abd: soft, distended, TP in all quadrants branden in RUQ. has no rebound tenderness. Nl BS, liver is palpated and percussed 3-4 cm in RUQ , spleen is percussed but not palpated. + shifting dullness, - fluid wave Ext: 1+ edema . DP 2+ ASSESSMENT AND PLAN: 41 y/o man with h/o alcoholic abuse , who presented with abd pain and distention 1- Transaminitis: Given his transaminits, RUQ pain, leukocytosis, and alcoholism , this goes with alcoholic hepatitis. discriminant function is 18, which indicates no need for steroids . - repeat LFTS in am - hepatitis panel pending 2- Abd pain: Ascitic fluid analysis does not suggest SBP. PMN is 225--> absolute number of 77 only. Suspect pain is from alcoholic hepatitis. although lipase is slightly elevated , he dose not have symptoms or exam that fits with acute pancreatitis - follow ascitic fluid cx - was started on ceftiraxone by ID 3- Ascitis : likely has undiagnosed cirrhosis . Unfortunately, fluid Albumin was not done to caluculate SAG. - Add ALbumin - MRCP. - r/o portal vein thrombosis - US showed minimal ascitis , d/w GI, no indication for paracentesis now . wait for MRCP - low sodium diet - d/w Dr. Linton, hold off diuresis now - he might need EGd to r/o esophageal varices 4- Macrocytosis , likelydue to alcoholism. - check B12 5- Alcohol dependence , last drink / . no Wd sx now - monitor for any withdrawal DVT PX . heparin sq
--- NOTE | 2017-05-04 14:57 | PN ---
Physical Exam: SUBJECTIVE: Patient seen and examined. States breathing has improved. continues to have abdominal pain. able to ambulate to the bathroom without difficulty. No CP, chest tightness, fever, chills, nausea, or vomiting. OBJECTIVE: Vital Signs Period Temp Pulse Resp BP Sys/Min Pulse Ox Last 24 Hr 97.6 F-98.4 F 94-114 19-20 121-141/52-86 100 GENERAL: lying comfortable in bed, nad, aaox3 EYES: PERRLA, EOMI, scleral anicterus ENT: mmm, sublingual jaundice NECK: supple LUNGS: CTAB, no wheezing, rales, rhonchi or accessory muscle use HEART: tachycardic, reg rhythm, normal S1/S2, no m/r/g, L JVD ABDOMEN: distended, RUQ ttp, +shifting dullness, hepatomegaly Lower Extr: 2+ DP pulses, 1+ pre-tibial and pedal pitting edema bilaterally NEUROLOGICAL: CNII-XII intact. Normal speech. Sensation intact. Motor strength 5 /5 in all 4 extremities CBC, BMP 05/04/17 11:58 05/04/17 11:58 Hepatic Panel Total Bilirubin 14.3 mg/dL (0.2-1.0) H 05/04/17 11:58 Direct Bilirubin 11.4 mg/dL (0.0-0.2) H 05/04/17 00:30 AST 176 U/L (15-37) H 05/04/17 11:58 ALT 82 U/L (12-78) H 05/04/17 11:58 Alkaline Phosphatase 177 U/L (45-117) H 05/04/17 11:58 Albumin 2.2 g/dl (3.4-5.0) L 05/04/17 11:58 Laboratory Tests 05/03/17 23:45 Fluid Source Peritoneal Fluid WBC 350 Fluid RBC 1040 Fluid Neutrophils 22 Fluid Lymphocytes 8 Fluid Glucose 120 Fluid Total Protein 1.1 LDH Serum/Fluid Ratio 71.38 Pleural Macrophages 57 Pleural Mesothelial 13 Lactate 2.8 -> 1.2 Lipase - 681 Microbiology 05/03/17 20:57 Blood - Peripheral Venous Blood Culture - NGTD x 24h 05/03 - Urine cultures, pending 05/03 - Ascites Gram Stain and cultures, pending IMAGING: Abdominal US (05/03) Impression: 1. Hepatomegaly with echogenic hepatic parenchyma representing steatosis and/or fibrosis. Coarsened liver contour suggests chronic liver disease. Please correlate clinical for cirrhosis. 2. Contracted gallbladder with no definite cholelithiasis, acute cholecystitis or biliary ductal dilatation. Mild thickening of the gallbladder wall is presumably secondary to underdistention. 3. Suboptimal evaluation of the pancreas. 4. Moderate splenomegaly, which is nonspecific, but could be due to portal hypertension. 5. Small volume of perihepatic fluid fluid and trace perisplenic fluid. CXR (05/03 ): Shallow inspiration with low lung volumes limiting evaluation of the lung bases. No definite airspace consolidation or sizable pleural effusion. If clinically warranted, a 2 view chest x-ray with improved inspiration may be obtained. Active Medications Folic Acid (Folic Acid -) 1 mg PO DAILY [facility] Heparin Sodium (Porcine) (Heparin -) 5,000 unit SQ TID [facility] Last Admin: 05/04/17 21:52 Dose: 5,000 unit Ceftriaxone Sodium 2 gm/ (Dextrose) 100 mls @ 200 mls/hr IVPB DAILY [facility] Last Admin: 05/04/17 11:49 Dose: 200 mls/hr Thiamine HCl (Vitamin B1 -) 100 mg PO DAILY [facility] ASSESSMENT/PLAN: 41yo man with PMH of hypertension, chronic EtOH, and alcoholic cirrhosis who presents with acute onset ascites, abdominal pain, and jaundice. #Ascites, suspect Alcoholic hepatitis given h/o abuse, abd pain, and elevated LFTs -Dr. Linton (GI) consulted -diagnostic tap unlikely SBP (WBC 350, but only 77 PMNs); fluid albumin not sent so can't calculate SAAG -MRCP w&w/o contrast -Albumin -possible EGD to r/o esophageal varices if portal htn identified on MRCP -f/u tumor markers, autoimmune Ab, viral panel -Ceftriaxone per ID -hold home meds lasix 20mg qd and spironolactone 25mg po qd #Transaminitis -Trend LFTs -f/u viral panel #Macrocytosis -f/u B12, and replete as needed #chronic EtOH abuse, last drink 04/17, no need for detox -Replete Thiamine and folic acid #FEN: d/c IVF/ lytes wnl/ Na controlled diet #DVT PPX Heparin TID #DISPO: continue M/S monitoring FULL code d/w Dr. Taylor Evans MD PGY1 - Internal Medicine Visit type - Emergency Visit Emergency Visit: No - New Patient This patient is new to me today: Yes Date on this admission: 05/04/17 - Critical Care Critical Care patient: No
[2017-05-05] MEDS: HEPARIN NA (PORCINE) 5,000 UNITS/ML 1ML VIAL SQ SCH ×3 (06:07→22:23)
--- NOTE | 2017-05-05 07:20 | PN ---
Physical Exam: SUBJECTIVE: Patient seen and examined. Continues to have RUQ>RLQ pain. No nausea or vomiting. No CP, chest tightness, fever, chills. OBJECTIVE: Vital Signs Period Temp Pulse Resp BP Sys/Min Pulse Ox Last 24 Hr 97.8 F-99.1 F 94-107 20-20 108-129/52-86 96 GENERAL: lying comfortable in bed, nad, aaox3 EYES: PERRLA, EOMI, scleral anicterus ENT: mmm, sublingual jaundice NECK: supple LUNGS: CTAB, no wheezing, rales, rhonchi or accessory muscle use HEART: tachycardic, reg rhythm, normal S1/S2, no m/r/g, L JVD ABDOMEN: distended, RUQ ttp, +shifting dullness, hepatomegaly Lower Extr: 2+ DP pulses, 1+ pre-tibial and pedal pitting edema bilaterally NEUROLOGICAL: CNII-XII intact. Normal speech. Sensation intact. Motor strength 5 /5 in all 4 extremities CBC, BMP 05/05/17 06:30 05/05/17 06:30 Hepatic Panel Total Bilirubin 13.5 mg/dL (0.2-1.0) H 05/05/17 06:30 Direct Bilirubin 11.4 mg/dL (0.0-0.2) H 05/04/17 00:30 AST 150 U/L (15-37) H 05/05/17 06:30 ALT 73 U/L (12-78) 05/05/17 06:30 Alkaline Phosphatase 175 U/L (45-117) H 05/05/17 06:30 Albumin 2.0 g/dl (3.4-5.0) L 05/05/17 06:30 Microbiology 05/03/17 20:54 Blood - Peripheral Venous Blood Culture - Preliminary NO GROWTH OBTAINED AFTER 24 HOURS, INCUBATION TO CONTINUE FOR 4 DAYS. 05/03/17 20:57 Blood - Peripheral Venous Blood Culture - Preliminary NO GROWTH OBTAINED AFTER 24 HOURS, INCUBATION TO CONTINUE FOR 4 DAYS. 05/03 - Urine cultures, pending 05/03 - Ascites Gram Stain and cultures, pending IMAGING: MRCP (05/04/17): -Mild HSM with heterogenous arterial enhancement of liver suggestive of hepatocellular disease. No focal hepatic lesion identified. -3.9x3cm pancreatic tail cyst lesion, ddx cystic neoplasm vs pseudocyst; main pancreatic duct is not dilated -Nonspecific peripancreatic and fatimah hepatitis adenopathy, ddx reactive vs neoplastic; no biliary duct dilation -Moderate diffuse mesenteric edema and abdominal ascites possibly from 3rd spacing 2/2 hepatocellular disease Active Medications Folic Acid (Folic Acid -) 1 mg PO DAILY [facility] Last Admin: 05/05/17 09:48 Dose: 1 mg Heparin Sodium (Porcine) (Heparin -) 5,000 unit SQ TID [facility] Last Admin: 05/05/17 06:07 Dose: 5,000 unit Ceftriaxone Sodium 2 gm/ (Dextrose) 100 mls @ 200 mls/hr IVPB DAILY [facility] Last Admin: 05/05/17 09:48 Dose: 200 mls/hr Thiamine HCl (Vitamin B1 -) 100 mg PO DAILY [facility] Last Admin: 05/05/17 09:48 Dose: 100 mg ASSESSMENT/PLAN: 41yo man with PMH of hypertension, chronic EtOH, and alcoholic cirrhosis who presents with acute onset ascites, abdominal pain, and jaundice. #Ascites, suspect Alcoholic hepatitis given h/o abuse, abd pain, and elevated LFTs; unlikely SBP (only 77 PMNs) -case d/w GI. MCRP - no focal liver lesions (AFP neg); possible pancreatic neoplasm vs pseudocyst. Will order CA 19-9. Will likely need EUS with FNA. -f/u tumor markers, autoimmune Ab, viral panel -Ceftriaxone per ID -IR guided diagnostic & therapeutic paracentesis; will order ascitic albumin and total protein to calculate SAAG -Start Lasix 40mg PO and Spironolactone 100mg PO daily #Transaminitis, gradually improving -Trend LFTs -f/u viral panel #chronic EtOH abuse, last drink 04/17, no need for detox -Replete Thiamine and folic acid daily #FEN: d/c IVF/ lytes wnl/ Na controlled diet #DVT PPX Heparin TID SQ #DISPO: continue M/S monitoring FULL code d/w Dr. Cait Evans MD PGY1 - Internal Medicine Visit type - Emergency Visit Emergency Visit: No - New Patient This patient is new to me today: No - Critical Care Critical Care patient: No
[2017-05-05 08:11] LABS: SERUM IRON 68 ug/dL (38-169); TOTAL IRON BINDING CAPACITY 90 ug/dL (250-450); UIBC 22 ug/dL (111-343)
[2017-05-05 08:18] LABS: BASO % 0.9 % (0-2.0); EOS % 1.6 % (0-4.5); MCH 35.3 pg (25.7-33.7); MCHC 33.5 g/dl (32.0-35.9); MEAN CELL VOLUME 105.5 fl (80-96); MEAN PLT VOLUME 7.3 fl (7.5-11.1); NEUT % 82.4 % (42.8-82.8); PLATELET COUNT 284 K/MM3 (134-434); RDW 15.6 % (11.9-15.9)
[2017-05-05 08:22] LABS: INR 2.05 (0.82-1.09); PROTHROMBIN TIME (PATIENT) 23.2 SEC (9.98-11.88)
[2017-05-05 08:25] LABS: ACTIVATED PTT 42.4 SECONDS (26.9-34.4)
[2017-05-05 09:10] LABS: ANION GAP 11 (8-16); BILIRUBIN,TOTAL 13.5 mg/dL (0.2-1.0); CALCIUM 8.2 mg/dL (8.5-10.1); CO2 23 mmol/L (21-32); CREATININE 0.7 mg/dL (0.7-1.3); GLUCOSE,RANDOM 88 mg/dL (74-106); SGOT/AST 150 U/L (15-37); SGPT/ALT 73 U/L (12-78)
[2017-05-05 09:35] LABS: ALK PHOS 175 U/L (45-117); TOT PROT 5.5 g/dl (6.4-8.2)
[2017-05-05] MEDS ORDERED: PT OWN MED DRAWER 7, Y5N ONE (09:41)
[2017-05-05] MEDS: CEFTRIAXONE 2 GM in DEXTROSE 5%-WATER - 100 ML IVPB SCH (09:48)
[2017-05-05] MEDS: FOLIC ACID 1 MG TABLET (FP) PO SCH (09:48)
[2017-05-05] MEDS: THIAMINE HCL 100 MG TABLET (FP) PO SCH (09:48)
--- NOTE | 2017-05-05 10:34 | PN ---
Progress Note, Physician History of Present Illness: Clinically better. Not in distress, AAO. Distended, firm abdomen. No events overnight. MRI results pending - Current Medication List Current Medications: Active Medications Folic Acid (Folic Acid -) 1 mg PO DAILY [facility] Last Admin: 05/05/17 09:48 Dose: 1 mg Heparin Sodium (Porcine) (Heparin -) 5,000 unit SQ TID [facility] Last Admin: 05/05/17 06:07 Dose: 5,000 unit Ceftriaxone Sodium 2 gm/ (Dextrose) 100 mls @ 200 mls/hr IVPB DAILY [facility] Last Admin: 05/05/17 09:48 Dose: 200 mls/hr Thiamine HCl (Vitamin B1 -) 100 mg PO DAILY [facility] Last Admin: 05/05/17 09:48 Dose: 100 mg - Objective Vital Signs: Vital Signs Temperature 98.2 F 05/05/17 09:00 Pulse Rate 100 H 05/05/17 09:00 Respiratory Rate 20 05/05/17 09:00 Blood Pressure 145/95 05/05/17 09:00 O2 Sat by Pulse Oximetry (%) 96 05/04/17 10:30 Constitutional: Yes: No Distress, Calm Cardiovascular: Yes: Regular Rate and Rhythm Respiratory: Yes: Regular Gastrointestinal: Yes: Distention. No: Rectal Bleeding, Tenderness, Vomiting Neurological: Yes: Alert, Oriented Labs: CBC, BMP 05/05/17 06:30 05/05/17 06:30 INR, PTT INR 2.05 (0.82-1.09) H 05/05/17 06:30 CBCD WBC 19.0 K/mm3 (4.0-10.0) H 05/05/17 06:30 RBC 3.38 M/mm3 (4.00-5.60) L 05/05/17 06:30 Hgb 11.9 GM/dL (11.7-16.9) 05/05/17 06:30 Hct 35.7 % (35.4-49) 05/05/17 06:30 MCV 105.5 fl (80-96) H 05/05/17 06:30 MCHC 33.5 g/dl (32.0-35.9) 05/05/17 06:30 RDW 15.6 % (11.9-15.9) 05/05/17 06:30 Plt Count 284 K/MM3 (134-434) 05/05/17 06:30 MPV 7.3 fl (7.5-11.1) L 05/05/17 06:30 CMP Sodium 139 mmol/L (136-145) 05/05/17 06:30 Potassium 3.5 mmol/L (3.5-5.1) 05/05/17 06:30 Chloride 105 mmol/L (98-107) 05/05/17 06:30 Carbon Dioxide 23 mmol/L (21-32) 05/05/17 06:30 Anion Gap 11 (8-16) 05/05/17 06:30 BUN 10 mg/dL (7-18) 05/05/17 06:30 Creatinine 0.7 mg/dL (0.7-1.3) 05/05/17 06:30 Creat Clearance w eGFR > 60 (>60) 05/05/17 06:30 Calcium 8.2 mg/dL (8.5-10.1) L 05/05/17 06:30 Total Bilirubin 13.5 mg/dL (0.2-1.0) H 05/05/17 06:30 AST 150 U/L (15-37) H 05/05/17 06:30 ALT 73 U/L (12-78) 05/05/17 06:30 Alkaline Phosphatase 175 U/L (45-117) H 05/05/17 06:30 Total Protein 5.5 g/dl (6.4-8.2) L 05/05/17 06:30 Albumin 2.0 g/dl (3.4-5.0) L 05/05/17 06:30 Problem List - Problems (1) Distended abdomen Code(s): R14.0 - ABDOMINAL DISTENSION (GASEOUS) (2) Alcohol abuse Code(s): F10.10 - ALCOHOL ABUSE, UNCOMPLICATED Assessment/Plan A 41 yom, alcoholic with possible underlying advanced liver disease who developed acute onset distended abdomen, chills, RUQ pain, jaundice and has leukocytosis on admission. Paracentesis reveals 1035 RBC, 350 WBC, 22 neutophils. No albumin was sent Doubt SBP. Suspect alcoholic hepatitis. DF 18 MRI results Hepatic panel, PT/INR viral serology - pending will follow
--- NOTE | 2017-05-05 11:19 | EKG ---
Test Reason : Blood Pressure : / mmHG Vent. Rate : 099 BPM Atrial Rate : 099 BPM P-R Int : 132 ms QRS Dur : 100 ms QT Int : 370 ms P-R-T Axes : 050 038 -04 degrees QTc Int : 474 ms NORMAL SINUS RHYTHM INFERIOR INFARCT , AGE UNDETERMINED ABNORMAL ECG NO PREVIOUS ECGS AVAILABLE Confirmed by DANTE GRANADOS MD ([id number]) on 05/05/2017 11:19:11 AM Referred By: Confirmed By:DANTE GRANADOS MD
[2017-05-05 12:19] LABS: HIV 1 & 2 AB NEGATIVE; HIV 1 AGp24 NEGATIVE
[2017-05-05 16:26] LABS: SMOOTH MUSCLE AB 8 Units (0-19)
[2017-05-05] MEDS: FUROSEMIDE 40 MG TABLET (FP) PO SCH (17:21)
[2017-05-05] MEDS: SPIRONOLACTONE 25 MG TABLET (FP) PO SCH (17:21)
--- NOTE | 2017-05-05 19:43 | PN ---
Teaching Attending Note Name of Resident: Eliana Evans ATTENDING PHYSICIAN STATEMENT I saw and evaluated the patient. I reviewed the resident's note and discussed the case with the resident. I agree with the resident's findings and plan as documented. SUBJECTIVE: Patient is a comfortable with no acute distress. No fever or chills, no shortness of breaths. OBJECTIVE: Vital Signs Temperature 98.1 F 05/05/17 18:05 Pulse Rate 102 H 05/05/17 18:05 Respiratory Rate 20 05/05/17 18:05 Blood Pressure 131/80 05/05/17 18:05 O2 Sat by Pulse Oximetry (%) 98 05/05/17 09:00 CBCD WBC 19.0 K/mm3 (4.0-10.0) H 05/05/17 06:30 RBC 3.38 M/mm3 (4.00-5.60) L 05/05/17 06:30 Hgb 11.9 GM/dL (11.7-16.9) 05/05/17 06:30 Hct 35.7 % (35.4-49) 05/05/17 06:30 MCV 105.5 fl (80-96) H 05/05/17 06:30 MCHC 33.5 g/dl (32.0-35.9) 05/05/17 06:30 RDW 15.6 % (11.9-15.9) 05/05/17 06:30 Plt Count 284 K/MM3 (134-434) 05/05/17 06:30 MPV 7.3 fl (7.5-11.1) L 05/05/17 06:30 CMP Sodium 139 mmol/L (136-145) 05/05/17 06:30 Potassium 3.5 mmol/L (3.5-5.1) 05/05/17 06:30 Chloride 105 mmol/L (98-107) 05/05/17 06:30 Carbon Dioxide 23 mmol/L (21-32) 05/05/17 06:30 Anion Gap 11 (8-16) 05/05/17 06:30 BUN 10 mg/dL (7-18) 05/05/17 06:30 Creatinine 0.7 mg/dL (0.7-1.3) 05/05/17 06:30 Creat Clearance w eGFR > 60 (>60) 05/05/17 06:30 Random Glucose 88 mg/dL (74-106) 05/05/17 06:30 Calcium 8.2 mg/dL (8.5-10.1) L 05/05/17 06:30 Total Bilirubin 13.5 mg/dL (0.2-1.0) H 05/05/17 06:30 AST 150 U/L (15-37) H 05/05/17 06:30 ALT 73 U/L (12-78) 05/05/17 06:30 Alkaline Phosphatase 175 U/L (45-117) H 05/05/17 06:30 Total Protein 5.5 g/dl (6.4-8.2) L 05/05/17 06:30 Albumin 2.0 g/dl (3.4-5.0) L 05/05/17 06:30 Current Medications Generic Name Dose Route Start Last Admin Trade Name Freq PRN Reason Stop Dose Admin Folic Acid 1 mg 05/05/17 10:00 05/05/17 09:48 Folic Acid - PO 1 mg DAILY [facility] Administration Furosemide 40 mg 05/05/17 16:45 05/05/17 17:21 Lasix - PO 40 mg DAILY [facility] Administration Heparin Sodium (Porcine) 5,000 unit 05/04/17 06:00 05/05/17 13:44 Heparin - SQ 5,000 unit TID [facility] Administration Ceftriaxone Sodium 2 gm/ 100 mls @ 200 mls/hr 05/04/17 11:00 05/05/17 09:48 Dextrose IVPB 200 mls/hr DAILY [facility] Administration Spironolactone 100 mg 05/05/17 16:45 05/05/17 17:21 Aldactone - PO 100 mg DAILY [facility] Administration Thiamine HCl 100 mg 05/05/17 10:00 05/05/17 09:48 Vitamin B1 - PO 100 mg DAILY [facility] Administration Home Medications Medication Instructions Recorded Furosemide 20 mg PO DAILY 05/04/17 Spironolactone 25 mg PO DAILY 05/04/17 PE: as per resident's note ASSESSMENT AND PLAN: 41 y/o man with h/o alcoholic abuse , who presented with abdominal pain and distention Paracentesis reveals 1035 RBC, 350 WBC, 22 neutrophils. # alcoholic hepatitis with Ascitis with undiagnosed cirrhosis r/o portal vein thrombosis. MRI of the abdomen is ordered, US showed minimal ascitis , no indication for paracentesis at this time. low sodium diet , GI Dr. Linton is on the case. discriminant function is 18, no need for steroids # Abdominal pain: Ascitic fluid analysis does not suggest SBP. PMN is 225--> absolute number of 77 only. Suspect pain is from alcoholic hepatitis. # Acute Transaminitis: follow the LFTS , hepatitis panel pending , On IV antibiotic ceftriaxone continue for now , wbc 19K, ID on the case # Alcohol dependence , last drink 04/17 . no withdrawal signs at this time DVT PX . heparin sq
[2017-05-06] MEDS: HEPARIN NA (PORCINE) 5,000 UNITS/ML 1ML VIAL SQ SCH ×3 (05:18→23:14)
[2017-05-06 07:05] LABS: EOS % 1.8 % (0-4.5); MCH 35.5 pg (25.7-33.7); MCHC 33.5 g/dl (32.0-35.9); MEAN CELL VOLUME 105.8 fl (80-96); MEAN PLT VOLUME 7.4 fl (7.5-11.1); NEUT % 83.7 % (42.8-82.8); PLATELET COUNT 279 K/MM3 (134-434); RDW 15.5 % (11.9-15.9); WHITE BLOOD COUNT 20.1 K/mm3 (4.0-10.0)
[2017-05-06 07:13] LABS: ANION GAP 10 (8-16); BILIRUBIN,TOTAL 14.4 mg/dL (0.2-1.0); CALCIUM 8.1 mg/dL (8.5-10.1); CO2 25 mmol/L (21-32); CREATININE 0.7 mg/dL (0.7-1.3); GLUCOSE,RANDOM 85 mg/dL (74-106); SGOT/AST 157 U/L (15-37); SGPT/ALT 70 U/L (12-78); TOT PROT 5.7 g/dl (6.4-8.2)
[2017-05-06 07:14] LABS: ALK PHOS 171 U/L (45-117)
[2017-05-06] MEDS: FOLIC ACID 1 MG TABLET (FP) PO SCH (09:23)
[2017-05-06] MEDS: THIAMINE HCL 100 MG TABLET (FP) PO SCH (09:23)
--- NOTE | 2017-05-06 11:12 | PN ---
Physical Exam: 24H Events: yesterday - MRCP O/N: mild tachycardia in 100's AM: INR 2.05 SUBJECTIVE: Patient seen and examined. Continues to have R sided pain. No nausea or vomiting. No CP, chest tightness, fever, chills. OBJECTIVE: Vital Signs Period Temp Pulse Resp BP Sys/Min Pulse Ox Last 24 Hr 98.1 F-98.9 F 93-103 20-20 109-134/66-83 97 GENERAL: lying comfortable in bed, nad, aaox3 EYES: PERRLA, EOMI, scleral anicterus ENT: mmm, sublingual jaundice NECK: supple LUNGS: CTAB, no wheezing, rales, rhonchi or accessory muscle use HEART: tachycardic, reg rhythm, normal S1/S2, no m/r/g, L JVD ABDOMEN: distended, RUQ ttp, +shifting dullness, hepatomegaly Lower Extr: 2+ DP pulses, 1+ pre-tibial and pedal pitting edema bilaterally NEUROLOGICAL: CNII-XII intact. Normal speech. Sensation intact. Motor strength 5 /5 in all 4 extremities CBC, BMP 05/06/17 06:20 05/06/17 06:20 INR 2.05 (0.82-1.09) H 05/05/17 06:30 Hepatic Panel Total Bilirubin 14.4 mg/dL (0.2-1.0) H 05/06/17 06:20 Direct Bilirubin 11.4 mg/dL (0.0-0.2) H 05/04/17 00:30 AST 157 U/L (15-37) H 05/06/17 06:20 ALT 70 U/L (12-78) 05/06/17 06:20 Alkaline Phosphatase 171 U/L (45-117) H 05/06/17 06:20 Albumin 2.0 g/dl (3.4-5.0) L 05/06/17 06:20 05/04/17 05/04/17 05/04/17 05/05/17 06:00 09:38 09:38 06:30 ANTONINO Screen Negative Smooth Musc &[employer] INST[employer]ER Intrp 8 Hep A IgM Ab Confirm Negative Hepatitis A Ab Total Positive H Hep Bs Antigen Negative Hep Bs Antibody Non reactive Hep B Core Total Ab Negative Hep B Core IgM Ab Negative Hepatitis C Antibody <0.1 HIV 1&2 Antibody Screen Negative HIV P24 Antigen Negative ASSESSMENT/PLAN: 41yo man with PMH of hypertension, chronic EtOH, and alcoholic cirrhosis who presents with acute onset ascites, abdominal pain, and jaundice. #Ascites, suspect Alcoholic hepatitis given h/o abuse, abd pain, and elevated LFTs; unlikely SBP (only 77 PMNs) MCRP - no focal liver lesions (AFP neg); possible pancreatic neoplasm vs pseudocyst. Will order CA 19-9. Will likely need EUS with FNA. -GI consulted. -f/u tumor markers, autoimmune Ab, viral panel -Ceftriaxone per ID -IR guided diagnostic & therapeutic paracentesis; will order ascitic albumin and total protein to calculate SAAG -Continue Lasix 40mg PO and Spironolactone 100mg PO daily #elevated INR (2.05) -Will give 5mg SQ VitK and 1U FFP tomorrow prior to Paracentesis #Tachycardia, in 100's -Started patient on Nadolol 20mg daily #Transaminitis, gradually improving, non-viral etiology (hepatitis panel neg) -Trend LFTs #chronic EtOH abuse, last drink 04/17, no need for detox -Replete Thiamine and folic acid daily #FEN: d/c IVF/ K repleted / Na controlled diet #DVT PPX Heparin TID SQ #DISPO: continue M/S monitoring FULL code d/w Dr. Cait Evans MD PGY1 - Internal Medicine Visit type - Emergency Visit Emergency Visit: No - New Patient This patient is new to me today: No - Critical Care Critical Care patient: No
[2017-05-06] MEDS ORDERED: POTASSIUM CHLORIDE ORAL LIQUID 20 MEQ/15 ML PO ONE (11:30)
[2017-05-06] MEDS: SPIRONOLACTONE 25 MG TABLET (FP) PO SCH (11:35)
[2017-05-06] MEDS: CEFTRIAXONE 2 GM in DEXTROSE 5%-WATER - 100 ML IVPB SCH (11:39)
[2017-05-06] MEDS: FUROSEMIDE 40 MG TABLET (FP) PO SCH (11:39)
[2017-05-06] MEDS ORDERED: PHYTONADIONE 10 MG/1 ML AMP SQ ONE (13:00)
--- NOTE | 2017-05-06 13:06 | PN ---
Progress Note, Physician History of Present Illness: Clinically the same. Not in distress, AAO. Distended, firm abdomen. No events overnight. MRI results noted - Current Medication List Current Medications: Active Medications Folic Acid (Folic Acid -) 1 mg PO DAILY [facility] Last Admin: 05/06/17 09:23 Dose: 1 mg Furosemide (Lasix -) 40 mg PO DAILY [facility] Last Admin: 05/06/17 11:39 Dose: 40 mg Heparin Sodium (Porcine) (Heparin -) 5,000 unit SQ TID [facility] Last Admin: 05/06/17 05:18 Dose: Not Given Ceftriaxone Sodium 2 gm/ (Dextrose) 100 mls @ 200 mls/hr IVPB DAILY [facility] Last Admin: 05/06/17 11:39 Dose: 200 mls/hr Spironolactone (Aldactone -) 100 mg PO DAILY [facility] Last Admin: 05/06/17 11:35 Dose: 100 mg Thiamine HCl (Vitamin B1 -) 100 mg PO DAILY [facility] Last Admin: 05/06/17 09:23 Dose: 100 mg - Objective Vital Signs: Vital Signs Temperature 98.9 F 05/06/17 06:00 Pulse Rate 93 H 05/06/17 06:00 Respiratory Rate 18 05/06/17 10:00 Blood Pressure 139/81 05/06/17 10:00 O2 Sat by Pulse Oximetry (%) 97 05/05/17 22:00 Constitutional: Yes: Calm Gastrointestinal: Yes: Ascites, Distention. No: Melena, Rectal Bleeding, Tenderness, Tenderness, Epigastrium, Tenderness, Rebound, Vomiting Neurological: Yes: Alert, Oriented Labs: CBC, BMP 05/06/17 06:20 05/06/17 06:20 INR, PTT INR 2.05 (0.82-1.09) H 05/05/17 06:30 Laboratory Results - last 24 hr 05/04/17 05/04/17 05/05/17 09:38 09:38 06:30 WBC RBC Hgb Hct MCV MCH MCHC RDW Plt Count MPV Neutrophils % Lymphocytes % Monocytes % Eosinophils % Basophils % Sodium Potassium Chloride Carbon Dioxide Anion Gap BUN Creatinine Creat Clearance w eGFR POC Glucometer Random Glucose Calcium Total Bilirubin AST ALT Alkaline Phosphatase Total Protein Albumin [facility] Screen Negative Smooth [employer]c &[employer] WORK[employer] Intrp 8 Hep A IgM Ab Confirm Negative Hepatitis A Ab Total Positive H Hep Bs Antigen Negative Hep Bs Antibody Non reactive Hep B Core Total Ab Negative Hep B Core IgM Ab Negative 05/05/17 05/05/17 05/06/17 17:23 22:26 05:22 WBC RBC Hgb Hct MCV MCH MCHC RDW Plt Count MPV Neutrophils % Lymphocytes % Monocytes % Eosinophils % Basophils % Sodium Potassium Chloride Carbon Dioxide Anion Gap BUN Creatinine Creat Clearance w eGFR POC Glucometer 107 97 81 Random Glucose Calcium Total Bilirubin AST ALT Alkaline Phosphatase Total Protein Albumin [place]INO Screen Smooth [employer]c &[employer] Intrp Hep A IgM Ab Confirm Hepatitis A Ab Total Hep Bs Antigen Hep Bs Antibody Hep B Core Total Ab Hep B Core IgM Ab 05/06/17 05/06/17 06:20 06:20 WBC 20.1 H RBC 3.55 L Hgb 12.6 Hct 37.6 MCV 105.8 H MCH 35.5 H MCHC 33.5 RDW 15.5 Plt Count 279 MPV 7.4 L Neutrophils % 83.7 H Lymphocytes % 7.4 L Monocytes % 6.1 Eosinophils % 1.8 Basophils % 1.0 Sodium 137 Potassium 3.2 L Chloride 102 Carbon Dioxide 25 Anion Gap 10 BUN 8 Creatinine 0.7 Creat Clearance w eGFR > 60 POC Glucometer Random Glucose 85 Calcium 8.1 L Total Bilirubin 14.4 H AST 157 H ALT 70 Alkaline Phosphatase 171 H Total Protein 5.7 L Albumin 2.0 L [place]INO Screen Smooth [employer]c &[employer] WORK[employer] Intrp Hep A IgM Ab Confirm Hepatitis A Ab Total Hep Bs Antigen Hep Bs Antibody Hep B Core Total Ab Hep B Core IgM Ab Problem List - Problems (1) Distended abdomen Code(s): R14.0 - ABDOMINAL DISTENSION (GASEOUS) (2) Alcohol abuse Code(s): F10.10 - ALCOHOL ABUSE, UNCOMPLICATED (3) Alcoholic hepatitis with ascites Code(s): K70.11 - ALCOHOLIC HEPATITIS WITH ASCITES Assessment/Plan Agree with the plan as outlined in residents note on 05/05/17 will follow
[2017-05-06] MEDS ORDERED: PT OWN MED DRAWER 7, Y5N ONE (14:06)
--- NOTE | 2017-05-06 22:46 | PN ---
Teaching Attending Note Name of Resident: Eliana Evans ATTENDING PHYSICIAN STATEMENT I saw and evaluated the patient. I reviewed the resident's note and discussed the case with the resident. I agree with the resident's findings and plan as documented. SUBJECTIVE: Patient is comfortable with no acute distress, no shortness of breath. OBJECTIVE: Vital Signs Temperature 98.8 F 05/06/17 14:10 Pulse Rate 105 H 05/06/17 14:10 Respiratory Rate 20 05/06/17 14:10 Blood Pressure 123/78 05/06/17 14:10 O2 Sat by Pulse Oximetry (%) 97 05/06/17 09:00 CBCD WBC 20.1 K/mm3 (4.0-10.0) H 05/06/17 06:20 RBC 3.55 M/mm3 (4.00-5.60) L 05/06/17 06:20 Hgb 12.6 GM/dL (11.7-16.9) 05/06/17 06:20 Hct 37.6 % (35.4-49) 05/06/17 06:20 MCV 105.8 fl (80-96) H 05/06/17 06:20 MCHC 33.5 g/dl (32.0-35.9) 05/06/17 06:20 RDW 15.5 % (11.9-15.9) 05/06/17 06:20 Plt Count 279 K/MM3 (134-434) 05/06/17 06:20 MPV 7.4 fl (7.5-11.1) L 05/06/17 06:20 CMP Sodium 137 mmol/L (136-145) 05/06/17 06:20 Potassium 3.2 mmol/L (3.5-5.1) L 05/06/17 06:20 Chloride 102 mmol/L (98-107) 05/06/17 06:20 Carbon Dioxide 25 mmol/L (21-32) 05/06/17 06:20 Anion Gap 10 (8-16) 05/06/17 06:20 BUN 8 mg/dL (7-18) 05/06/17 06:20 Creatinine 0.7 mg/dL (0.7-1.3) 05/06/17 06:20 Creat Clearance w eGFR > 60 (>60) 05/06/17 06:20 Random Glucose 85 mg/dL (74-106) 05/06/17 06:20 Calcium 8.1 mg/dL (8.5-10.1) L 05/06/17 06:20 Total Bilirubin 14.4 mg/dL (0.2-1.0) H 05/06/17 06:20 AST 157 U/L (15-37) H 05/06/17 06:20 ALT 70 U/L (12-78) 05/06/17 06:20 Alkaline Phosphatase 171 U/L (45-117) H 05/06/17 06:20 Total Protein 5.7 g/dl (6.4-8.2) L 05/06/17 06:20 Albumin 2.0 g/dl (3.4-5.0) L 05/06/17 06:20 Current Medications Generic Name Dose Route Start Last Admin Trade Name Freq PRN Reason Stop Dose Admin Folic Acid 1 mg 05/05/17 10:00 05/06/17 09:23 Folic Acid - PO 1 mg DAILY [facility] Administration Furosemide 40 mg 05/05/17 16:45 05/06/17 11:39 Lasix - PO 40 mg DAILY [facility] Administration Heparin Sodium (Porcine) 5,000 unit 05/04/17 06:00 05/06/17 14:25 Heparin - SQ Not Given TID [facility] Ceftriaxone Sodium 2 gm/ 100 mls @ 200 mls/hr 05/04/17 11:00 05/06/17 11:39 Dextrose IVPB 200 mls/hr DAILY [facility] Administration Nadolol 20 mg 05/06/17 17:45 Corgard - PO DAILY [facility] Spironolactone 100 mg 05/05/17 16:45 05/06/17 11:35 Aldactone - PO 100 mg DAILY [facility] Administration Thiamine HCl 100 mg 05/05/17 10:00 05/06/17 09:23 Vitamin B1 - PO 100 mg DAILY [facility] Administration Home Medications Medication Instructions Recorded Furosemide 20 mg PO DAILY 05/04/17 MCRP - no focal liver lesions (AFP neg); possible pancreatic neoplasm vs pseudocystSpironolactone 25 mg PO DAILY 05/04/17 Laboratory Tests 05/03/17 05/04/17 05/04/17 21:05 06:00 09:38 Alcohol, Quantitative < 5.0 [facility] Screen Smooth [employer]c &[employer] TECHNICIAN Intrp Hep A IgM Ab Confirm Negative Hepatitis A Ab Total Positive H Hep Bs Antigen Negative Hep Bs Antibody Non reactive Hep B Core Total Ab Negative Hep B Core IgM Ab Hepatitis C Antibody <0.1 HIV 1&2 Antibody Screen HIV P24 Antigen 05/04/17 05/05/17 05/05/17 09:38 06:30 06:30 Alcohol, Quantitative [facility] Screen Negative Smooth [employer]c &[employer] SERVICES TECHNICIAN Intrp 8 Hep A IgM Ab Confirm Negative Hepatitis A Ab Total Positive H Hep Bs Antigen Negative Hep Bs Antibody Non reactive Hep B Core Total Ab Negative Hep B Core IgM Ab Hepatitis C Antibody HIV 1&2 Antibody Screen Negative HIV P24 Antigen Negative 05/05/17 06:30 Alcohol, Quantitative [facility] Screen Smooth [employer]c &[employer] SERVICES TECHNICIAN Intrp Hep A IgM Ab Confirm Hepatitis A Ab Total Hep Bs Antigen Hep Bs Antibody Hep B Core Total Ab Hep B Core IgM Ab Negative Hepatitis C Antibody HIV 1&2 Antibody Screen HIV P24 Antigen PE: per resident's note Abdomen: positive ascites, positive for distention. ext: pulses are positive ASSESSMENT AND PLAN: 41 y/o man with h/o alcoholic abuse , who presented with abdominal pain and distention Paracentesis reveals 1035 RBC, 350 WBC, 22 neutrophils. #Ascites, suspect Alcoholic hepatitis given h/o abuse, abd pain, and elevated LFTs; unlikely SBP (only 77 PMNs) CA 19-9. 206, cannot r/o neoplasm. # Alcoholic hepatitis with Ascitis with undiagnosed cirrhosis r/o portal vein thrombosis. MRI of the abdomen is ordered, US showed minimal ascitis , no indication for paracentesis at this time. low sodium diet , GI Dr. Linton is on the case. discriminant function is 18, no need for steroids,Ascitic fluid analysis does not suggest SBP. PMN only 77 ,follow tumor markers, autoimmune Ab , viral panel Will need IR guided diagnostic & therapeutic paracentesis; will order ascitic albumin and total protein to calculate SAAG, but inr IS elevated INR (2.05) Will give 5mg SQ VitK and 1U FFP tomorrow prior to Paracentesis, Continue Lasix 40mg PO and Spironolactone 100mg PO daily # Acute Transaminitis: follow the LFTS , hepatitis panel pending , On IV antibiotic ceftriaxone continue for now , wbc 19K, ID on the case # Alcohol dependence , last drink 04/17 . no withdrawal signs at this time # Acute hypokalemia will replete DVT PX . heparin sq
[2017-05-07] MEDS: HEPARIN NA (PORCINE) 5,000 UNITS/ML 1ML VIAL SQ SCH ×2 (05:55→15:47)
--- NOTE | 2017-05-07 07:20 | PN ---
Physical Exam: SUBJECTIVE: Patient seen and examined. Continues to have R sided pain. No nausea or vomiting. No CP, chest tightness, fever, chills. OBJECTIVE: Vital Signs Period Temp Pulse Resp BP Sys/Min Pulse Ox Last 24 Hr 98.2 F-99.4 F 96-105 18-20 123-139/72-84 97 GENERAL: jaundiced middle age man, lying comfortable in bed, nad, aaox3 EYES: PERRLA, EOMI, scleral icterus ENT: mmm, sublingual jaundice NECK: supple LUNGS: CTAB, no wheezing, rales, rhonchi or accessory muscle use HEART: tachycardic, reg rhythm, normal S1/S2, no m/r/g, L JVD ABDOMEN: distended, RUQ ttp, +shifting dullness, hepatomegaly Lower Extr: 2+ DP pulses, 1+ pre-tibial and pedal pitting edema bilaterally NEUROLOGICAL: CNII-XII intact. Normal speech. Sensation intact. Motor strength 5 /5 in all 4 extremities CBC, BMP 05/07/17 08:44 05/07/17 08:32 Hepatic Panel Total Bilirubin 15.4 mg/dL (0.2-1.0) H* 05/07/17 08:32 Direct Bilirubin 11.4 mg/dL (0.0-0.2) H 05/04/17 00:30 AST 159 U/L (15-37) H 05/07/17 08:32 ALT 65 U/L (12-78) 05/07/17 08:32 Alkaline Phosphatase 192 U/L (45-117) H 05/07/17 08:32 Albumin 2.1 g/dl (3.4-5.0) L 05/07/17 08:32 Microbiology 05/03/17 20:54 Blood - Peripheral Venous Blood Culture - Preliminary NO GROWTH OBTAINED AFTER 72 HOURS, INCUBATION TO CONTINUE FOR 2 DAYS. 05/03/17 20:57 Blood - Peripheral Venous Blood Culture - Preliminary NO GROWTH OBTAINED AFTER 72 HOURS, INCUBATION TO CONTINUE FOR 2 DAYS. 05/03/17 23:45 Ascites Gram Stain - Final 05/03/17 23:45 Ascites Body Fluid Culture - Final NO GROWTH OF AEROBIC ORGANISMS AFTER 48 HOURS INCUBATION 05/03/17 23:45 Ascites Anaerobic Culture - Final NO ANAEROBES WERE ISOLATED 05/03/17 20:54 Urine - Urine Clean Catch Urine Culture - Final NO GROWTH OBTAINED Active Medications Folic Acid (Folic Acid -) 1 mg PO DAILY [facility] Last Admin: 05/07/17 09:07 Dose: 1 mg Furosemide (Lasix -) 40 mg PO DAILY [facility] Last Admin: 05/07/17 09:07 Dose: 40 mg Heparin Sodium (Porcine) (Heparin -) 5,000 unit SQ TID [facility] Last Admin: 05/07/17 15:47 Dose: 5,000 unit Ceftriaxone Sodium 2 gm/ (Dextrose) 100 mls @ 200 mls/hr IVPB DAILY [facility] Last Admin: 05/07/17 09:07 Dose: 200 mls/hr Nadolol (Corgard -) 20 mg PO DAILY [facility] Last Admin: 05/07/17 09:08 Dose: 20 mg Spironolactone (Aldactone -) 100 mg PO DAILY [facility] Last Admin: 05/07/17 09:07 Dose: 100 mg Thiamine HCl (Vitamin B1 -) 100 mg PO DAILY [facility] Last Admin: 05/07/17 09:07 Dose: 100 mg ASSESSMENT/PLAN: 41yo man with PMH of hypertension, chronic EtOH, and alcoholic cirrhosis who presents with acute onset ascites, abdominal pain, and jaundice. #Ascites, Alcoholic hepatitis given h/o abuse, abd pain, and elevated LFTs; MCRP - cystic lesion in pancreatic head and elevated 19-9. Will transfer to [facility] for EUS/FNA for pancreatic Ca r/o -GI consulted. Initiated transfer to [facility] for EUS/FNA by Dr. Niko Mckeon -Ceftriaxone per ID -Continue Lasix 40mg PO and Spironolactone 100mg PO daily -Paracentesis d/c today due to elevated INR despite VitK SQ yesterday #Tachycardia, in 100's yesterday -Started patient on Nadolol 20mg daily #Transaminitis, unlikely viral etiology (hepatitis panel neg) -Trend LFTs #chronic EtOH abuse, last drink 04/17, no need for detox -Replete Thiamine and folic acid daily -MVI daily #FEN: PO hydration / lytes wnl / Na controlled diet #DVT PPX Heparin TID SQ #DISPO: transfer to [facility] FULL code d/w Dr. Cait Evans MD PGY1 - Internal Medicine Visit type - Emergency Visit Emergency Visit: No - New Patient This patient is new to me today: No - Critical Care Critical Care patient: No
[2017-05-07 08:58] LABS: BASO # 0.2 # (0.1-1); BASO % 0.8 % (0-2.0); EOS # 0.4 # (0-4.5); EOS % 1.8 % (0-4.5); LYMPH # 1.7 (8-40); MCH 35.3 pg (25.7-33.7); MCHC 33.4 g/dl (32.0-35.9); MEAN CELL VOLUME 105.7 fl (80-96); MEAN PLT VOLUME 7.4 fl (7.5-11.1); MONO # 1.1 # (3.8-10.2); NEUT # 17.3 # (42.8-82.8); NEUT % 83.8 % (42.8-82.8); PLATELET COUNT 258 K/MM3 (134-434); RDW 15.7 % (11.9-15.9); WHITE BLOOD COUNT 20.7 K/mm3 (4.0-10.0)
[2017-05-07] MEDS ORDERED: PT OWN MED DRAWER 7, Y5N ONE ×2 (08:58→09:05)
[2017-05-07] MEDS: NADOLOL 20 MG TABLET (FP) PO SCH ×2 (09:03→09:08)
[2017-05-07] MEDS: FUROSEMIDE 40 MG TABLET (FP) PO SCH (09:07)
[2017-05-07] MEDS: FOLIC ACID 1 MG TABLET (FP) PO SCH (09:07)
[2017-05-07] MEDS: CEFTRIAXONE 2 GM in DEXTROSE 5%-WATER - 100 ML IVPB SCH (09:07)
[2017-05-07] MEDS: THIAMINE HCL 100 MG TABLET (FP) PO SCH (09:07)
[2017-05-07] MEDS: SPIRONOLACTONE 25 MG TABLET (FP) PO SCH (09:07)
[2017-05-07 09:11] LABS: INR 2.03 (0.82-1.09); PROTHROMBIN TIME (PATIENT) 22.9 SEC (9.98-11.88)
[2017-05-07 09:22] LABS: ALBUMIN 2.1 g/dl (3.4-5.0); ANION GAP 10 (8-16); CALCIUM 8.5 mg/dL (8.5-10.1); CO2 26 mmol/L (21-32); CREATININE 0.9 mg/dL (0.7-1.3); GLUCOSE,RANDOM 86 mg/dL (74-106); SGOT/AST 159 U/L (15-37); SGPT/ALT 65 U/L (12-78); TOT PROT 5.8 g/dl (6.4-8.2)
[2017-05-07 09:24] LABS: ALK PHOS 192 U/L (45-117)
[2017-05-07 11:26] LABS: BILIRUBIN,TOTAL 15.4 mg/dL (0.2-1.0)
--- NOTE | 2017-05-07 11:27 | PN ---
Progress Note, Physician History of Present Illness: Clinically the same. Not in distress, AAO. Distended, firm abdomen. No events overnight. MRI findings and CA 19-9 noted. - Current Medication List Current Medications: Active Medications Folic Acid (Folic Acid -) 1 mg PO DAILY [facility] Last Admin: 05/07/17 09:07 Dose: 1 mg Furosemide (Lasix -) 40 mg PO DAILY [facility] Last Admin: 05/07/17 09:07 Dose: 40 mg Heparin Sodium (Porcine) (Heparin -) 5,000 unit SQ TID [facility] Last Admin: 05/07/17 05:55 Dose: Not Given Ceftriaxone Sodium 2 gm/ (Dextrose) 100 mls @ 200 mls/hr IVPB DAILY [facility] Last Admin: 05/07/17 09:07 Dose: 200 mls/hr Nadolol (Corgard -) 20 mg PO DAILY [facility] Last Admin: 05/07/17 09:08 Dose: 20 mg Spironolactone (Aldactone -) 100 mg PO DAILY [facility] Last Admin: 05/07/17 09:07 Dose: 100 mg Thiamine HCl (Vitamin B1 -) 100 mg PO DAILY [facility] Last Admin: 05/07/17 09:07 Dose: 100 mg - Objective Vital Signs: Vital Signs Temperature 98.2 F 05/07/17 06:00 Pulse Rate 96 H 05/07/17 06:00 Respiratory Rate 18 05/07/17 06:00 Blood Pressure 123/72 05/07/17 06:00 O2 Sat by Pulse Oximetry (%) 97 05/06/17 22:00 Constitutional: Yes: No Distress, Calm Gastrointestinal: Yes: Ascites, Distention. No: Rectal Bleeding, Tenderness, Tenderness, Rebound, Vomiting Neurological: Yes: Alert, Oriented Labs: CBC, BMP 05/07/17 08:44 05/07/17 08:32 INR, PTT INR 2.03 (0.82-1.09) H 05/07/17 08:32 Abnormal Lab Results 05/05/17 05/06/17 05/07/17 06:30 06:20 08:32 WBC RBC MCV MCH MPV Absolute Neuts (auto) Absolute Lymphs (auto) Absolute Monos (auto) Neutrophils % PT with INR 22.90 H INR 2.03 H AST Alkaline Phosphatase Total Protein Albumin CA 19-9 Antigen 206 H Hepatitis A Ab Total Positive H 05/07/17 05/07/17 08:32 08:44 WBC 20.7 H RBC 3.45 L MCV 105.7 H MCH 35.3 H MPV 7.4 L Absolute Neuts (auto) 17.3 L Absolute Lymphs (auto) 1.7 L Absolute Monos (auto) 1.1 L Neutrophils % 83.8 H PT with INR INR AST 159 H Alkaline Phosphatase 192 H Total Protein 5.8 L Albumin 2.1 L CA 19-9 Antigen Hepatitis A Ab Total - ....Imaging MRI: Report Reviewed Problem List - Problems (1) Distended abdomen Code(s): R14.0 - ABDOMINAL DISTENSION (GASEOUS) (2) Alcohol abuse Code(s): F10.10 - ALCOHOL ABUSE, UNCOMPLICATED (3) Alcoholic hepatitis with ascites Code(s): K70.11 - ALCOHOLIC HEPATITIS WITH ASCITES (4) Pancreatic abnormality Code(s): Q45.3 - [facility] CONGENITAL MALFORMATIONS OF PANCREAS AND PANCREATIC DUCT (5) Elevated CA 19-9 level Code(s): R97.8 - OTHER ABNORMAL TUMOR MARKERS Assessment/Plan R/o pancreatic neoplasm. Transfer to [facility] for EUS/FNA initiated. The case was discussed with the accepting MD, Niko Mckeon.
--- NOTE | 2017-05-07 18:40 | DS ---
Physical Exam: SUBJECTIVE: Patient seen and examined. Continues to have R sided pain. No nausea or vomiting. No CP, chest tightness, fever, chills. OBJECTIVE: Vital Signs Period Temp Pulse Resp BP Sys/Min Pulse Ox Last 24 Hr 98.2 F-99.4 F 96-105 18-20 123-139/72-84 97 GENERAL: jaundiced middle age man, lying comfortable in bed, nad, aaox3 EYES: PERRLA, EOMI, scleral icterus ENT: mmm, sublingual jaundice NECK: supple LUNGS: CTAB, no wheezing, rales, rhonchi or accessory muscle use HEART: tachycardic, reg rhythm, normal S1/S2, no m/r/g, L JVD ABDOMEN: distended, RUQ ttp, +shifting dullness, hepatomegaly Lower Extr: 2+ DP pulses, 1+ pre-tibial and pedal pitting edema bilaterally NEUROLOGICAL: CNII-XII intact. Normal speech. Sensation intact. Motor strength 5 /5 in all 4 extremities CBC, BMP 05/07/17 08:44 05/07/17 08:32 Hepatic Panel Total Bilirubin 15.4 mg/dL (0.2-1.0) H* 05/07/17 08:32 Direct Bilirubin 11.4 mg/dL (0.0-0.2) H 05/04/17 00:30 AST 159 U/L (15-37) H 05/07/17 08:32 ALT 65 U/L (12-78) 05/07/17 08:32 Alkaline Phosphatase 192 U/L (45-117) H 05/07/17 08:32 Albumin 2.1 g/dl (3.4-5.0) L 05/07/17 08:32 Ascitic Fluid analysis 05/03/17 23:45 Fluid Source Peritoneal Fluid WBC 350 Fluid RBC 1040 Fluid Neutrophils (%) 22 Fluid Lymphocytes (%) 8 Fluid Glucose 120 Fluid Total Protein 1.1 LDH Serum/Fluid Ratio 71.38 Pleural Macrophages 57 Pleural Mesothelial 13 05/04/17 05/04/17 05/04/17 05/05/17 06:00 09:38 09:38 06:30 ANTONINO Screen Negative [employer] Intrp 8 (neg) Hep A IgM Ab Confirm Negative Hepatitis A Ab Total Positive H Hep Bs Antigen Negative Hep Bs Antibody Non reactive Hep B Core Total Ab Negative Hep B Core IgM Ab Negative Hepatitis C Antibody <0.1 HIV 1&2 Antibody Screen Negative HIV P24 Antigen Negative 05/04/17 05/06/17 09:38 06:20 Tumor Marker AFP 3.1 CA 19-9 Antigen 206 H Lactate 2.8 -> 1.2 Lipase - 633 -> 681 Microbiology 05/03/17 20:54 Blood - Peripheral Venous Blood Culture - Preliminary NO GROWTH OBTAINED AFTER 72 HOURS, INCUBATION TO CONTINUE FOR 2 DAYS. 05/03/17 20:57 Blood - Peripheral Venous Blood Culture - Preliminary NO GROWTH OBTAINED AFTER 72 HOURS, INCUBATION TO CONTINUE FOR 2 DAYS. 05/03/17 23:45 Ascites Gram Stain - Final - NEG 05/03/17 23:45 Ascites Body Fluid Culture - Final - NO GROWTH OF AEROBIC ORGANISMS AFTER 48 HOURS INCUBATION 05/03/17 23:45 Ascites Anaerobic Culture - Final - NO ANAEROBES WERE ISOLATED 05/03/17 20:54 Urine - Urine Clean Catch Urine Culture - Final - NO GROWTH OBTAINED Active Medications Folic Acid (Folic Acid -) 1 mg PO DAILY [facility] Last Admin: 05/07/17 09:07 Dose: 1 mg Furosemide (Lasix -) 40 mg PO DAILY [facility] Last Admin: 05/07/17 09:07 Dose: 40 mg Heparin Sodium (Porcine) (Heparin -) 5,000 unit SQ TID [facility] Last Admin: 05/07/17 15:47 Dose: 5,000 unit Ceftriaxone Sodium 2 gm/ (Dextrose) 100 mls @ 200 mls/hr IVPB DAILY [facility] Last Admin: 05/07/17 09:07 Dose: 200 mls/hr Nadolol (Corgard -) 20 mg PO DAILY [facility] Last Admin: 05/07/17 09:08 Dose: 20 mg Spironolactone (Aldactone -) 100 mg PO DAILY [facility] Last Admin: 05/07/17 09:07 Dose: 100 mg Thiamine HCl (Vitamin B1 -) 100 mg PO DAILY [facility] Last Admin: 05/07/17 09:07 Dose: 100 mg HOSPITAL COURSE: Date of Admission:05/03/17 Date of Discharge: 05/07/17 Pre-admission Course: 41 y/o man w/ pmh of HTN and chronic alcohol abuse (1-1.5 pints of liquor/day) who presents with new right-side abdominal pain and subjective fevers in the setting of 2.5 weeks of worsening abdominal distension, RUQ fullness and jaundice. Pt endorses experiencing dull RUQ pain and fullness, starting Dec , after drinking a pint of liquor. Pt states that over the following few days he developed abdominal distension, constipation and experienced decreased appetite. Pt stopped drinking alcohol, however experienced no significant improvement in symptoms. He states that he has experienced a similar episode ~ 3months that lasted 2-3 days and completely resolved after stopping his EtOH intake. Pt endorses persistent abdominal distension, worsening jaundice and six days ago began noting BL LE edema, persistent R-sided abdominal pain and subjective fevers at night. He denies any LEON/dizziness, CP, palpitations, persistent N/V, dysuria, diarrhea, changes in stool color, melena, hematochezia or melena. He does endorse 3-4 days of dry cough, and intermittent constipation over the past few weeks, as well as decreased PO intake. He endorses mild exacerbation of his abdominal pain on deep inspiration, but denies worsening with food, positioning and denies any radiation or relieving factors. Pt has never been hospitalized for an infection or GI process before. He denies any hx of GI disorders. He denies hx of Hepatitis B/C dx or IVDU. 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 ER course was notable for: (1) Afebrile, HR 114 (2) WBC 20K, Lactate 2.8, T Bili 14.6, Lipase 633 (3) Abdominal U/S coarse liver w/ perihepatic fluid (4) 1xdose Ceftazidime (5) diagnostic paracentesis - PMNs 77 Subsequent Hospital Course: A diagnostic paracenetesis was performed. Analysis of ascitic fluid revealed WBC 350 with 22% PMNs (ie 77), making SBP unlikely. Repeat US-guided therapeutic and diagnostic paracentesis was planned to calculate SAAG (ascitic fluid albumin not previously sent), but patient's INR remained elevated despite Vitamin K SQ therapy. ID was consulted, and patient was placed on Ceftriaxone. GI was consulted. Patient underwent MRCP that revealed cystic lesion in pancreatic tail with ddx pseudocyst vs neoplasm. AFP tumor marker was negative, but CA 19-9 was found to be elevated. Transfer to [facility] was initiated for EUS/FNA to rule-out pancreatic Ca (accepting physician Dr. Niko Ho). Autoimmune markers (ANTONINO and Sm Muscle Ab) were found to be negative. Hepatitis viral panel showed immunity to Hep B, neg Hep A and Hep C. Patient's home lasix and aldactone were increased to 40mg PO daily and 100mg PO daily, respectively (prior home dose Lasix 20mg qd, Aldactone 25mg qd). He was also started on Nadolol 20mg PO daily for tachycardia and hypertension. Patient was given daily thiamine, folic acid, and multivitamin. Consults: GI - Dr. Linton IMAGING: Abdominal US (05/03) Impression: 1. Hepatomegaly with echogenic hepatic parenchyma representing steatosis and/or fibrosis. Coarsened liver contour suggests chronic liver disease. Please correlate clinical for cirrhosis. 2. Contracted gallbladder with no definite cholelithiasis, acute cholecystitis or biliary ductal dilatation. Mild thickening of the gallbladder wall is presumably secondary to underdistention. 3. Suboptimal evaluation of the pancreas. 4. Moderate splenomegaly, which is nonspecific, but could be due to portal hypertension. 5. Small volume of perihepatic fluid fluid and trace perisplenic fluid. CXR (05/03 ): Shallow inspiration with low lung volumes limiting evaluation of the lung bases. No definite airspace consolidation or sizable pleural effusion. If clinically warranted, a 2 view chest x-ray with improved inspiration may be obtained. MRI OF THE ABDOMEN WITHOUT AND WITH IV GADOLINIUM WITH MRCP (05/04/17): TECHNIQUE: Multiplanar multisequential MRI of the abdomen before and after the intravenous administration of contrast were performed on a high field 1.5 Marielena GE magnet. Prior to that MRA of the abdominal aorta was performed as well. Axial and coronal T2 fat-sat, axial T1 (in and out of phase), axial T2 FIESTA, axial T1 fat sat - LAVA prior to contrast and postcontrast administration (45 seconds, 80 seconds, 3 minutes, 5 minutes and 10 minutes delay) in addition to coronal postcontrast LAVA and axial diffusion weighted images were performed. Axial and coronal thin and thick slab 3 D MRCP was performed. 14 cc of Omniscan was administered intravenously. No comparison MRI is available. Correlation is made with ultrasound of the abdomen dated May 03, 2017. FINDINGS: There is mild bilateral posterior dependent lung atelectasis. The visualized inferior mediastinum is grossly unremarkable. The liver is enlarged measuring 19 cm in length. No focal hepatic signal abnormality or restricted diffusion is seen. There is no evidence of focal hepatic signal abnormality or abnormal enhancing lesion. There is heterogeneous arterial enhancement of the liver with normal in position on delayed phases. The spleen is is enlarged measuring 14.1 x 13.2 x 6.2 cm with no evidence of focal abnormal signal or enhancing lesions. There is a 3.9 x 3.0 cm cystic lesion in the proximal pancreatic tail containing layering debris demonstrating mural enhancement but with no evidence of nodular or solid components. Multiple prominent peripancreatic lymph nodes are seen measuring up to 2.3 cm. There is no pancreatic dilatation. The gallbladder is contracted with no gross evidence of stones or sludge. There is small pericholecystic fluid. The CBD is normal in caliber with no evidence of filling defects. There is no intrahepatic biliary ductal dilatation. The adrenal glands are unremarkable. The kidneys are symmetrically enhancing with no evidence of enhancing lesions. There is no hydronephrosis. Small amount of abdominal ascites coupled with diffuse mesenteric edema is seen. There are no abnormally dilated bowel loops. The visualized osseous structures are grossly unremarkable. IMPRESSION: Mild hepatosplenomegaly with heterogeneous arterial enhancement of the liver suggestive of hepatocellular disease. No focal hepatic lesion identified. 3.9 x 3.0 cm pancreatic tail cystic lesion with mural enhancement but no solid component containing layering debris's. The differential diagnoses include cystic neoplasm versus pseudocyst. Correlation with clinical history and tumor markers is needed. Endoscopy with endoscopic ultrasound can be obtained for further evaluation. Main pancreatic duct is not dilated. Nonspecific peripancreatic and fatimah hepatis adenopathy which could be reactive or neoplastic. No biliary ductal dilatation. Moderate amount of abdominal ascites with diffuse mesenteric edema likely third spacing secondary to hepatocellular disease. Minutes to complete discharge: 45 Discharge Summary Reason For Visit: SPONTANEOUS BACTERIAL PERITONITIS Current Active Problems Alcohol abuse (Acute) Alcoholic hepatitis with ascites (Acute) Distended abdomen (Acute) Elevated CA 19-9 level (Acute) Pancreatic abnormality (Acute) SBP (spontaneous bacterial peritonitis) (Acute) - Instructions Diet, Activity, Other Instructions: You were admitted to the hospital for fluid in your abdomen (ascites) and abnormal liver function tests. You are being transferred to [facility] to the care of Dr. Niko Mckeon for a procedure to biopsy your pancreas. As discussed, imaging and blood work are concerning for cancer and further tests are needed. Please follow [facility]'s recommendations for medication to take when you are discharged, and any physician follow-ups they recommend. You may follow-up with Dr. Linton, Hand I Cutter (stomach doctor), when you are discharged from [facility]. You were found to have no immunity to Hepatitis B. You should ask your primary care physician (Dr. Chon Zhang, ) about Hepatitis B vaccination when your health improves. Referrals: Masood Linton MD [Staff Physician] - Chon Zhang [Other] - 1 Week (Please see Dr. Zhang within 1 week when you are discharged from [facility].) Disposition: TRANSFER ACUTE CARE/OTHER HOSP - Home Medications Comprehensive Discharge Medication List: Ambulatory Orders Furosemide 20 mg PO DAILY 05/04/17 Spironolactone 25 mg PO DAILY 05/04/17 This patient is new to me today: No Emergency Visit: No Critical Care patient: No - Discharge Referral Referred to [facility] Med P.C.: No
--- NOTE | 2017-05-07 18:55 | PN ---
Teaching Attending Note Name of Resident: Eliana Evans ATTENDING PHYSICIAN STATEMENT I saw and evaluated the patient. I reviewed the resident's note and discussed the case with the resident. I agree with the resident's findings and plan as documented. SUBJECTIVE: Patient is comfortable with no acute distress. OBJECTIVE: Vital Signs Temperature 98.3 F 05/07/17 14:36 Pulse Rate 79 05/07/17 14:36 Respiratory Rate 18 05/07/17 14:36 Blood Pressure 106/68 05/07/17 14:36 O2 Sat by Pulse Oximetry (%) 97 05/07/17 09:00 CBCD WBC 20.7 K/mm3 (4.0-10.0) H 05/07/17 08:44 RBC 3.45 M/mm3 (4.00-5.60) L 05/07/17 08:44 Hgb 12.2 GM/dL (11.7-16.9) 05/07/17 08:44 Hct 36.4 % (35.4-49) 05/07/17 08:44 MCV 105.7 fl (80-96) H 05/07/17 08:44 MCHC 33.4 g/dl (32.0-35.9) 05/07/17 08:44 RDW 15.7 % (11.9-15.9) 05/07/17 08:44 Plt Count 258 K/MM3 (134-434) 05/07/17 08:44 MPV 7.4 fl (7.5-11.1) L 05/07/17 08:44 CMP Sodium 136 mmol/L (136-145) 05/07/17 08:32 Potassium 4.0 mmol/L (3.5-5.1) D 05/07/17 08:32 Chloride 100 mmol/L (98-107) 05/07/17 08:32 Carbon Dioxide 26 mmol/L (21-32) 05/07/17 08:32 Anion Gap 10 (8-16) 05/07/17 08:32 BUN 10 mg/dL (7-18) D 05/07/17 08:32 Creatinine 0.9 mg/dL (0.7-1.3) D 05/07/17 08:32 Creat Clearance w eGFR > 60 (>60) 05/07/17 08:32 Random Glucose 86 mg/dL (74-106) 05/07/17 08:32 Calcium 8.5 mg/dL (8.5-10.1) 05/07/17 08:32 Total Bilirubin 15.4 mg/dL (0.2-1.0) H* 05/07/17 08:32 AST 159 U/L (15-37) H 05/07/17 08:32 ALT 65 U/L (12-78) 05/07/17 08:32 Alkaline Phosphatase 192 U/L (45-117) H 05/07/17 08:32 Total Protein 5.8 g/dl (6.4-8.2) L 05/07/17 08:32 Albumin 2.1 g/dl (3.4-5.0) L 05/07/17 08:32 Current Medications Generic Name Dose Route Start Last Admin Trade Name Garettq PRN Reason Stop Dose Admin Folic Acid 1 mg 05/05/17 10:00 05/07/17 09:07 Folic Acid - PO 1 mg DAILY [facility]ER Administration Furosemide 40 mg 05/05/17 16:45 05/07/17 09:07 Lasix - PO 40 mg DAILY JENNIFER Administration Heparin Sodium (Porcine) 5,000 unit 05/04/17 06:00 05/07/17 15:47 Heparin - SQ 5,000 unit TID JENNIFER Administration Ceftriaxone Sodium 2 gm/ 100 mls @ 200 mls/hr 05/04/17 11:00 05/07/17 09:07 Dextrose IVPB 200 mls/hr DAILY JENNIFER Administration Nadolol 20 mg 05/06/17 17:45 05/07/17 09:08 Corgard - PO 20 mg DAILY JENN[facility]ER Administration Spironolactone 100 mg 05/05/17 16:45 05/07/17 09:07 Aldactone - PO 100 mg DAILY JENNIFER Administration Thiamine HCl 100 mg 05/05/17 10:00 05/07/17 09:07 Vitamin B1 - PO 100 mg DAILY JENNIFER Administration Home Medications Medication Instructions Recorded Furosemide 20 mg PO DAILY 05/04/17 Spironolactone 25 mg PO DAILY 05/04/17 MRCP (05/04/17): -Mild HSM with heterogenous arterial enhancement of liver suggestive of hepatocellular disease. No focal hepatic lesion identified. -3.9x3cm pancreatic tail cyst lesion, ddx cystic neoplasm vs pseudocyst; main pancreatic duct is not dilated -Nonspecific peripancreatic and fatimah hepatitis adenopathy, ddx reactive vs neoplastic; no biliary duct dilation -Moderate diffuse mesenteric edema and abdominal ascites possibly from 3rd spacing 2/2 hepatocellular disease Active Medications PE: per resident's note Abdomen: positive ascites, positive for distention. ext: pulses are positive ASSESSMENT AND PLAN: 41 y/o man with h/o alcoholic abuse , who presented with abdominal pain and distention Paracentesis reveals 1035 RBC, 350 WBC, 22 neutrophils. #Ascites,with Alcoholic hepatitis with alcohol dependency ,abd pain, and elevated LFTs; unlikely SBP (only 77 PMNs), elevated CA 19-9. 206, cannot r/o pancreatic neoplasm. MRCP: 3.9x3cm pancreatic tail cyst lesion, ddx cystic neoplasm vs pseudocyst # Alcoholic hepatitis with Ascitis with undiagnosed cirrhosis . MRI of the abdomen reviewed, low sodium diet , GI Dr. Linton is on the case. discriminant function is 18, no need for steroids,Ascitic fluid analysis does not suggest SBP. PMN only 77 ,follow tumor markers, autoimmune Ab, viral panel Will need IR guided diagnostic & therapeutic paracentesis; will order ascitic albumin and total protein to calculate SAAG, but inr IS elevated INR (2.05) Will give 5mg SQ VitK and 1U FFP tomorrow prior to Paracentesis, Continue Lasix 40mg PO and Spironolactone 100mg PO daily # Acute Transaminitis: follow the LFTS , hepatitis panel pending , On IV antibiotic ceftriaxone continue for now , wbc 19K-->20K today , on ceftriaxone 2gm as per , ID on the case # Alcohol dependence , last drink 04/17 . no withdrawal signs at this time # Acute hypokalemia will replete DVT PX . heparin sq R/o pancreatic neoplasm. Transfer to [facility] for EUS/FNA initiated. The case was discussed with the accepting MD, Niko Mckeon by
[2017-05-07 20:03] VITALS: BP 116/72; PULSE 83; TEMP 98.1
== END 2017-05-07 20:27 | disposition short-term general hospital (02) | DRG 280 ==
LOC: JER 18:58 → JERBED 23:31 → J5S 05-04 02:00
PROVIDERS: ADMIT Internal Medicine; ATTEND Internal Medicine
PROC: 0W9G30Z Drainage of Peritoneal Cavity with Drainage Device, Percutaneous Approach (ICD-10-PCS; principal; 2017-05-03)
DX: K70.11 Alcoholic hepatitis with ascites (principal); K72.90 Hepatic failure, unspecified without coma; E87.2 Acidosis; I27.20 Pulmonary hypertension, unspecified; Z87.891 Personal history of nicotine dependence; R74.0 Nonspecific elevation of levels of transaminase and lactic acid dehydrogenase [LDH]; F10.20 Alcohol dependence, uncomplicated; D75.89 Other specified diseases of blood and blood-forming organs; E87.6 Hypokalemia; R00.0 Tachycardia, unspecified; R97.8 Other abnormal tumor markers; J98.11 Atelectasis; R16.2 Hepatomegaly with splenomegaly, not elsewhere classified
CPT/HCPCS: 36415; 71010-TC; 74183-TC; 76700-TC; 80053; 80307; 81003; 82105; 82140; 82150; 82248; 82607; 82945; 83516; 83540; 83550; 83605; 83615; 83690; 84157; 85025; 85610; 85730; 86038; 86301; 86704; 86705; 86706; 86708; 86803; 86850; 86900; 86901; 87040; 87070; 87075; 87086; 87205; 87340; 87389; 89050; 93005; 93010; 99282-25; J1644; P9047

== ENCOUNTER 2018-08-31 14:05 | Emergency (ER) | payer OTHER ==
[2018-08-31 14:13] VITALS: BP 120/82; PULSE 83; TEMP 97.9; BMI 25.7
--- NOTE | 2018-08-31 15:34 | PDOC ---
History of Present Illness - General Chief Complaint: Pain Stated Complaint: SWOLLEN LT ARM Time Seen by Provider: 08/31/18 14:08 - History of Present Illness Initial Comments: 43 year old man with PMH of HTN, remote chronic alcohol abuse (1-1.5 pints of liquor/day with cessation 1 year prior), and remote smoking (3 years prior). Denies fevers, chills, nausea, vomiting, diarrhea, weight loss, or other symptoms. He sometimes get similar swelling and erythema on his knees bilaterally. He was sexually active 6 years prior with his and did not use protection but assures that they are both monogamous. Denies animal or woodland exposure. The only medication he is on is Lasix every three days. 08/31/18 15:53 Past History - Past Medical History Allergies/Adverse Reactions: Allergies Allergy/AdvReac Type Severity Reaction Status Date / Time No Known Allergies Allergy Verified 08/31/18 14:13 Home Medications: Ambulatory Orders Furosemide [Lasix -] 40 mg PO DAILY tablet 05/09/17 Nadolol [Corgard -] 20 mg PO DAILY tablet 05/09/17 Spironolactone [Aldactone -] 100 mg PO DAILY tablet 05/09/17 Cephalexin Monohydrate [Keflex -] 500 mg PO Q6H 5 Days #20 capsule 08/31/18 Sulfamethoxazole/Trimethoprim [Bactrim Ds -] 1 tab PO BID 7 Days #14 tablet COPD: No Liver Disease: Yes (Cirrosis) - Surgical History Abdominal Surgery: No Appendectomy: No Cardiac Surgery: No Cholecystectomy: No Gastric Stapling: No GI Surgery: No Lung Surgery: No Neurologic Surgery: No - Suicide/Smoking/Psychosocial Hx Smoking History: Never smoked Have you smoked in the past 12 months: No Information on smoking cessation initiated: No Hx Alcohol Use: No Drug/Substance Use Hx: No Substance Use Type: None Review of Systems - Review of Systems Constitutional: No: Chills, Diaphoresis, Fever HEENTM: No: Eye Pain, Blurred Vision, Tearing Respiratory: No: Cough, Orthopnea, Shortness of Breath Cardiac (ROS): No: Chest Pain, Irregular Heart Rate ABD/GI: No: Diarrhea, Nausea, Vomiting : No: Burning, Dysuria, Discharge Musculoskeletal: Yes: Joint Pain, Joint Stiffness. No: Back Pain Integumentary: Yes: Erythema, Lesions Neurological: No: Headache, Numbness, Paresthesia Psychiatric: Yes: Other (previously history of alcohol abuse). No: Anxiety, Depression Endocrine: No: Unexplained Weight Loss, Change in Weight Hematologic/Lymphatic: No: Anemia, Blood Clots, Easy Bleeding *Physical Exam - Vital Signs Last Vital Signs Temp Pulse Resp BP Pulse Ox 97.9 F 83 18 120/82 100 08/31/18 14:08 08/31/18 14:08 08/31/18 14:08 08/31/18 14:08 08/31/18 14:08 - Physical Exam General Appearance: Yes: Nourished, Appropriately Dressed. No: Apparent Distress HEENT: positive: EOMI, GREGOR, Normal ENT Inspection, Normal Voice Neck: positive: Trachea midline, Normal Thyroid, Supple. negative: Tender, Rigid Respiratory/Chest: positive: Lungs Clear, Normal Breath Sounds. negative: Chest Tender, Respiratory Distress, Accessory Muscle Use Cardiovascular: positive: Regular Rhythm, Regular Rate Gastrointestinal/Abdominal: positive: Normal Bowel Sounds, Flat, Soft. negative : Tender, Distended Lymphatic: negative: Adenopathy, Tenderness Musculoskeletal: positive: Decreased Range of Motion, Other (erytehma of left posterior wrist and dorsal hand). negative: Normal Inspection Extremity: positive: Normal Capillary Refill, Tender (tender left wrist with erythema and swelling). negative: Normal Inspection, Normal Range of Motion Integumentary: positive: Dry, Warm, Erythema. negative: Normal Color Neurologic: positive: Fully Oriented, Alert, Normal Mood/Affect, Normal Response , Motor Strength 5/5 ED Treatment Course - LABORATORY CBC & Chemistry Diagram: 08/31/18 16:54 08/31/18 16:54 Medical Decision Making - Medical Decision Making 43 year old male with history of HTN and previous alcohol abuse presenting with left wrist erythema and swelling. XR negative with minor elevation of CRP. This is likely a cellulites. Given one dose of Bactrim and Keflex in ED and sent home with 5 days and 7 days respectively. 08/31/18 20:09 *DC/Admit/Observation/Transfer Diagnosis at time of Disposition: Cellulitis of hand - Discharge Dispostion Disposition: HOME Condition at time of disposition: Improved Decision to Admit order: No - Prescriptions Prescriptions: Cephalexin Monohydrate [Keflex -] 500 mg PO Q6H 5 Days #20 capsule Sulfamethoxazole/Trimethoprim [Bactrim Ds -] 1 tab PO BID 7 Days #14 tablet - Referrals Referrals: Sushma Meza [Primary Care Provider] - - Patient Instructions Printed Discharge Instructions: DI for Cellulitis -- Adult Additional Instructions: Please use our antibiotics as prescribed for your skin infection, Please use Tylenol or Motrin for the pain. Please return to the ED if you have new or worsening symptoms. - Post Discharge Activity
--- NOTE | 2018-08-31 16:11 | PDOC ---
Attending Attestation - Resident Resident Name: Jaylan Keane - ED Attending Attestation I have performed the following: I have examined & evaluated the patient, The case was reviewed & discussed with the resident, I agree w/resident's findings & plan, Exceptions are as noted - HPI HPI: 08/31/18 16:55 43yo male with hx of htn and hx of etoh abuse, no longer drinking with L hand and wrist swelling and pain. No pain along flexor tendons of the fingers. Denies bug bites, recent travel, injuries, biting his nails, recent abx, no fevers/chills. No pets or exposure to ticks, no new sexual partners. Pt states hx of b/l knee swelling in the past, but denies today. Pt with pain with ROM of the wrist. - Physicial Exam PE: 08/31/18 16:56 Gen: aaox3, nad heart: +s1s2 reg lungs: cta b/l abd: soft, nt/nd +bs ext: No c/c/e, radial and pedal pulses intact, redness, swelling, warth, ttp over dorsal surface of hand and wrist, no bites or lacs, sensation intact, brisk cap refill, no lymphangitic spread up the hand neuro: no focal findings - Medical Decision Making 08/31/18 16:11 I, Dr. Kiana Lockett, DO, attest that this document has been prepared under my direction and personally reviewed by me in its entirety. I further attest, that it accurately reflects all work, treatment, procedures and medical decision -making performed by me. 08/31/18 17:00 a/p: 43yo male with L wrist and hand swelling/redness/pain -will obtain xray, labs, uric acid, lyme titer -pt denies new sexual partners, states in a committed relationship with his , but will send gc/chl given knee pain also in the past -concern for cellulitis to hand and wrist -no fevers, no lymphangitic spread -will give tylenol and monitor 08/31/18 19:59 labs reviewed no elevated wbc no acute findings on the xray will start abx for cellulitis, no lymphangitic spread no fever stable for dc home with bactrim and keflex
[2018-08-31] MEDS ORDERED: KETOROLAC TROMETHAMINE 15 MG/ML VIAL IM ONE (16:29)
[2018-08-31] MEDS ORDERED: KETOROLAC TROMETHAMINE 30 MG/1 ML VIAL ONE ×2 (16:44→16:45)
[2018-08-31] MEDS ORDERED: KETOROLAC TROMETHAMINE 30 MG/1 ML VIAL IM ONE ×2 (16:45→17:00)
[2018-08-31 17:08] LABS: BASO % 0.5 % (0-2.0); EOS % 2.1 % (0-4.5); HEMATOCRIT 39.9 % (35.4-49); HEMOGLOBIN 13.7 GM/dL (11.7-16.9); LYMPH % 11.4 % (8-40); MCH 31.1 pg (25.7-33.7); MCHC 34.3 g/dl (32.0-35.9); MEAN CELL VOLUME 90.7 fl (80-96); MEAN PLT VOLUME 7.9 fl (7.5-11.1); MONO % 11.2 % (3.8-10.2); NEUT % 74.8 % (42.8-82.8); PLATELET COUNT 191 K/MM3 (134-434); RDW 13.1 % (11.9-15.9); WHITE BLOOD COUNT 9.7 K/mm3 (4.0-10.0)
[2018-08-31 17:25] LABS: INR 1.19 (0.83-1.09); PROTHROMBIN TIME (PATIENT) 14.1 SEC (9.7-13.0)
[2018-08-31 17:33] LABS: ALK PHOS 158 U/L (45-117); ANION GAP 5 MMOL/L (8-16); BILIRUBIN,TOTAL 1.1 mg/dL (0.2-1); BLOOD UREA NITROGEN 15 mg/dL (7-18); CALCIUM 8.7 mg/dL (8.5-10.1); CHLORIDE 106 mmol/L (98-107); CO2 27 mmol/L (21-32); CREATININE 0.6 mg/dL (0.55-1.3); GLUCOSE,RANDOM 101 mg/dL (74-106); POTASSIUM 3.8 mmol/L (3.5-5.1); SGOT/AST 35 U/L (15-37); SGPT/ALT 59 U/L (13-61); SODIUM 137 mmol/L (136-145); TOT PROT 6.8 g/dl (6.4-8.2)
[2018-08-31 18:49] LABS: URIC ACID 7.6 mg/dL (2.6-7.2)
[2018-08-31] MEDS ORDERED: SULFAMETHOXAZOLE/TRIMETHOPRIM 800MG/160MG D.S. TABLET PO ONE (19:21)
[2018-08-31] MEDS ORDERED: SULFAMETHOXAZOLE/TRIMETHOPRIM 800MG/160MG D.S. TABLET ONE (19:24)
[2018-08-31] MEDS ORDERED: CEPHALEXIN 250 MG/5 ML ORAL SUSPENSION PO ONE (19:58)
[2018-08-31] MEDS ORDERED: CEPHALEXIN MONOHYDRATE 500 MG CAPSULE (UD) PO ONE (20:11)
[2018-08-31] MEDS ORDERED: CEPHALEXIN MONOHYDRATE 500 MG CAPSULE (UD) ONE (20:14)
[2018-08-31 22:49] LABS: ERYTHROCYTE SEDIMENTATION RATE 16 mm/hr (0-10)
== END 2018-08-31 20:17 | disposition home or self-care (01) ==
LOC: JER 14:05
DX: L03.114 Cellulitis of left upper limb (principal); I10 Essential (primary) hypertension; K74.60 Unspecified cirrhosis of liver
CPT/HCPCS: 36415; 73110-TC-LT-FY; 73130-TC-LT-FY; 80053; 84550; 85025; 85610; 85651; 86140; 99282-25